=== PATIENT | female | born 1995 | race Caucasian/White ===

== ENCOUNTER 2017-10-21 07:20 | Inpatient (IN) ==
[2017-10-21] MEDS ORDERED: CARBOPROST 250 MCG/ML INJECTION IM PRN (07:57)
[2017-10-21] MEDS ORDERED: ACETAMINOPHEN 500 MG TABLET PO PRN ×2 (07:57→09:30)
[2017-10-21] MEDS ORDERED: CALCIUM CARBONATE Chewable 500mg TABLET PO PRN ×2 (07:57→09:30)
[2017-10-21] MEDS ORDERED: MAG-AL + SIM ORAL LIQUID 30ml PO PRN ×2 (07:57→09:30)
[2017-10-21] MEDS ORDERED: LIDOCAINE 1% (10mg/ml) 2mL INJ PF SDV ID PRN (07:57)
[2017-10-21] MEDS ORDERED: METHYLERGONOVINE 0.2 MG/ML INJECTION IM PRN (07:57)
[2017-10-21] MEDS ORDERED: LR 1,000 ML IV PRN (07:57)
--- OUTSIDE RECORDS SUMMARY | 2017-10-21 07:57 | External Medical Summary | Continuity of Care Document ---
:1995 Author Organization [facility] Address [address] [place], [place] [id number] Phone Support Name Relationship Address Phone Griffin Phillips parent [address] [phone] [place] [address] Allergies, Adverse Reactions, Alerts Substance Reaction Severity Status Sulfa (Sulfonamide Antibiotics) Unknown Active Medications Medication Instructions Dosage Effective Dates Status Comments (start - stop) Diclegis 10 mg-10 mg take 1 tablet by Not Available - Active tablet,delayed oral route every release day in the morning, 1 tablet in the mid-afternoon, and 2 tablets at bedtime as needed for nausea 28 mg take 1 tablet by Not Available - Active iron-800 mcg tablet oral route every day Zovirax 5 % topical apply by topical Not Available - Active cream route 5 times every day to the affected area(s) Valacyclovir Hcl 500 TAKE ONE TABLET BY - Active Mg Tablet MOUTH EVERY DAY (increase TO TWICE DAILY FOR 5 DAYS INFECTION outbreak) Problems Condition Effective Dates (start - stop) Clinical Status Follow-Up, Routine - Threatened , Antepartum - Routine Care, Multigravida 12 weeks gestation of - Spotting complicating , first trimester Herpesviral vulvovaginitis Anxiety disorder, unspecified Puerperal psychosis Vaginal burning Threatened - 12 weeks gestation of - Other antepartum hemorrhage, first - trimester 12 weeks gestation of - Other viral diseases complicating - , first trimester Encntr screen for infections w sexl - mode of transmiss Encounter for screening for oth - infec/parastc diseases Encounter for suprvsn of normal - , first trimester Encounter for screening of - mother 11 weeks gestation of - Encounter for screening for oth - infec/parastc diseases Enc for surveillance of implantable subdermal contraceptive Encounter for surveillance of other - contraceptives Encounter for surveillance of other - contraceptives Encounter for surveillance of other contraceptives Encounter for test, result - negative Vaginal Lesion - Active Vaginal Discharge - Active Herpes Simplex Virus Active Anxiety Disorder Active Active Procedures Procedure Date OB Visit No Charge CBC, Automated Hemogram Venpnctr fngr/heel/ear stick routne Results Test Name Date and Time Measure Units Reference Range Abnormal Flag Comments Panel Description: CBC (INCLUDES DIFF/PLT) WHITE BLOOD CELL 7.9 Thousand/uL 3.8-10.8 N COUNT 11:19:00 RED BLOOD CELL 3.83 Million/uL 3.80-5.10 N COUNT 11:19:00 HEMOGLOBIN 12.5 g/dL 11.7-15.5 N 11:19:00 HEMATOCRIT 35.5 % 35.0-45.0 N 11:19:00 MCV 92.7 fL 80.0-100.0 N 11:19:00 MCH 32.6 pg 27.0-33.0 N 11:19:00 MCHC 35.2 g/dL 32.0-36.0 N 11:19:00 RDW 12.4 % 11.0-15.0 N 11:19:00 PLATELET COUNT 270 Thousand/uL 140-400 N 11:19:00 MPV 10.6 fL 7.5-12.5 N 11:19:00 ABSOLUTE 5538 cells/uL 9997-2208 N NEUTROPHILS 11:19:00 ABSOLUTE 1714 cells/uL 850-3900 N LYMPHOCYTES 11:19:00 ABSOLUTE MONOCYTES 608 cells/uL 200-950 N 11:19:00 ABSOLUTE 8 cells/uL 15-500 L EOSINOPHILS 11:19:00 ABSOLUTE BASOPHILS 32 cells/uL 0-200 N 11:19:00 NEUTROPHILS 70.1 % N 11:19:00 LYMPHOCYTES 21.7 % N 11:19:00 MONOCYTES 7.7 % N 11:19:00 EOSINOPHILS 0.1 % N 11:19:00 BASOPHILS 0.4 % N REPORT 11:19:00 COMMENT:FASTING:NO Test performed at [facility] [id number] [place] [address]Atezxmjb : ANDREA FOWLER DO,MPH Advance Directives Directive Yes / No Effective Date File Name Unknown Encounters Encounter Practice Location Reason(s) Diagnoses Date Provider Care Team Description For Visit Members Souleymane Hillman Other antepartum Sep-2 Shook Referring In Womens hemorrhage, first 0-201 Tanisha. Provider: Sissy THOMPSON, [id number] weeks 7 700 [facility] gestation of Medical Rk [place] [address], Center [facility] Dr Zofia, [facility], [address] [place] [id number], [place] [address], Rafy LOPEZ, tel:+ [phone] [place], , . [id number]. tel: tel: [phone] Souleymane Hillman Threatened Sep-2 Rk Referring In Womens Ultrasound [id number] weeks 0-201 Bryan. 700 Provider: Sissy THOMPSON, gestation of 7 Medical [facility] Center Rk [place] [address], , [place] [address] [place], [facility], [facility] [id number], [facility] 120, [id number] Rafy, tel: , . [place], tel: [phone]. [id number] tel:[phone] Souleymane Hillman Threatened Sep-1 Sobbing Referring In Womens , 8-201 [place]. Provider: Sissy THOMPSON, AntepartumRoutine 7 700 [facility] Care, Medical Rk R, 1522, [id number] Center 700 [place], [facility] of Suite Center [id number], 120, [place] 120, [place] Rafy Hillman, tel: [place], [address], [id number]. [place]. tel: tel: [phone] Souleymane Hillman Other viral Sep-1 Rk Referring In Womens diseases 4-201 Bryan. [facility] Provider: Sissy THOMPSON, complicating 7 Medical Javed [address] , first Center Rk R, 1522, trimesterEncntr , [address], screen for 120, [facility], infections w sexl Rafy, [place] [id number], mode of [place], [place] 120, [place] transmissEncounte [id number] Rafy, tel:2 r for screening , [place]. [place], for oth tel: [phone]. infec/parastc [id number] tel: diseasesEncounter [phone] for suprvsn of normal , first trimesterEncounte r for screening of [id number] weeks gestation of Souleymane Hillman Spotting Sep-1 Shook Referring In Womens complicating 2-201 Tanisha. Provider: Sissy THOMPSON, , first 7 700 Javed PO Box trimester Medical Rk R, 1522, Center [facility] [place], , [facility], 120, Center [id number], Rafy, [facility] 120, [place] Rafy LOPEZ, tel:[phone] [place], , [place]. [id number]. tel: tel: [phone] Souleymane Phipps for May-3 Shook Referring In Womens surveillance of 0-201 Tanisha. Provider: Sissy THOMPSON, implantable 7 700 Javed PO Box subdermal Medical Rk R, 1522, contraceptiveEnco Center [facility] [place] for Dr, [facility], surveillance of 120, Center [id number], other Hillman, [facility] 120, [place] contraceptives Rafy LOPEZ, tel: [phone] [place], , [place]. [id number]. tel: tel: [phone] Souleymane Hillman Mar-3 Rk In Womens 0-201 [place]. 700 Health DONNA, 7 Medical PO Box Center 1522, , [place] Armijo, 120, Rafy LOPEZ, [id number], [place], [place] [id number] tel: , [place]. tel: [phone] Souleymane Hillman Mar-1 Rk In Womens 6-201 [place]. 700 Health DONNA, 7 Medical PO Box Center 1522, , [place] Arm[place], 120, Rafy LOPEZ, [id number], [place], [place] [id number] tel: , [place]. tel: [phone] Souleymane Hillman Encounter for Aug- Shook Referring In Womens surveillance of - Tanisha. Provider: Sissy THOMPSON, other [address] [place] [address] Box contraceptivesEnc Medical Rk R, 1522, ounter for Center Kay Armijo, surveillance of , [facility], [facility] 120, [place] [id number], contraceptivesEnc Rafy, [facility] 120, ounter for Rafy LOPEZ, tel: test, [place], result negative , [place]. [id number]. tel: tel: [phone] Souleymane Hillman Dec-2 Rk Referring In Womens Follow-Up, - Bryan. 700 Provider: Sissy THOMPSON, Routine 6 [facility] Rk [place], 1522, Dr [place] Kay Armijo, 120, Medical [facility] [id number], [place], [facility] 120, [place] [id number] Rafy, tel: , [place]. [place], tel: [phone]. [id number] tel:[phone] Souleymane Hillman Puerperal Dec-1 Rk Referring In Womens psychosis 4-201 Bryan. 700 Provider: Sissy THOMPSON, 6 [facility] Rk [place], 1522, [place], 120, Medical Rafy [facility] [id number], [place], [facility] 120, [place] [id number] Rafy, tel: , . [place] tel:[phone]. [phone] tel:[phone] Souleymane Hillman Oct-2 Rk Referring In Womens 7-201 Bryan. 700 Provider: Sissy THOMPSON, 6 [facility] Box [place] Rk [place], 1522, , [place] 700 [place], 120, Medical Rafy [facility] [id number], [place], [place] 120, [place] [id number] Rafy, tel:+ , [place]. [place], tel: [phone]. [id number] tel:[phone] Souleymane Hillman Sep-2 Rk Referring In Womens 2-201 [place]. 700 Provider: Sissy THOMPSON, 6 [facility] Box [place] Rk [place], 1522, , [place] 700 [place], 120, Medical Rafy [facility] [id number], [place], [place] 120, [place] [id number] Rafy, tel:+ , . [place], tel: [phone]. [phone] tel:[phone] Souleymane Hillman Vaginal burning Aug-2 Rk Referring In Womens 2201 [place]. 700 Provider: Sissy THOMPSON, 6 [facility] Rk [place], Moe2, , [place] 700 [place], 120, Medical Rafy [facility] [id number], [place], [facility] 120, [place] [id number] Rafy, tel: , [place]. [place], tel: [phone]. [phone] tel:[phone] Souleymane Hillman Encounter for Apr-1 Rk Referring In Womens screening for oth 3- Bryan. 700 Provider: Sissy THOMPSON, infec/parastc 6 [facility] diseases Center Cyrus Ayoub, , [place] 700 [place], 120, Medical Rafy [facility] [id number], [place], [place] 120, [place] [id number] Rafy, tel: , [place]. [place], tel: [phone]. [phone] tel:[phone] Souleymane Hillman Herpesviral Mar-0 Rk Referring In Womens vulvovaginitisAnx 3- Bryan. 700 Provider: Sissy THOMPSON, iety disorder, 6 [facility] Box unspecified Center Rk [place], 1522, , [place] 700 [place], 120, Medical Rafy [facility] [id number], [place], [facility] 120, [place] [id number] Rafy, tel:+ , [place]. [place], tel: [phone]. [id number] tel:[phone] Associates Rafy Jul- Rk Referring In Womens 2-201 Bryan. 700 Provider: Health DONNA, 4 [facility] [address], [address], 120, Medical Rafy [facility] [id number], [place], [facility] 120, [place] [id number] Rafy, tel:+ , [place]. [place], tel: [phone]. [id number] tel:[phone] Souleymane Hillman Sep-3 Rk Referring In Womens 0-201 Bryan. 700 Provider: Health DONNA, 4 [facility] [address], [place] [address] [place], 120, Medical Rafy [facility] [id number], [place], [facility] 120, [place] [id number] Rafy, tel: , [place]. [place], tel: [phone]. [phone] tel:[phone] Associates Rafy Philip-0 Macias In Womens 8-201 [place]. Health [place], [address] [place], [place] [address], [place] Dr Zofia, [facility], 120, [id number], Hillman, JOHN, tel: [phone] , [place]. tel: [phone] Family History Family Member Diagnosis Age At Onset Maternal Grandmother Diabetes mellitus Maternal Grandfather Diabetes mellitus Immunizations Vaccine Date Status Comments Tdap completed Source: New Immunization Record Influenza, injectable, completed Source: New Immunization Record quadrivalent, preservative free, 3 yrs or older HPV, quadrivalent completed Source: New Immunization Record HPV, quadrivalent completed Source: New Immunization Record Payers Payer name Insurance type Covered alliance party ID Authorization(s) [facility] [id number] [facility] [id number] [facility] [id number] [facility] [id number] [place] [id number] [facility] [id number] [employer] [id number] Social History Type Description Quantity Date Captured Alcohol Use Details No Caffeine Use Details Unknown Tobacco Use Status Smoking Status Former smoker Vital Signs Date / Height Weight BMI Pulse Blood Temperature Respiratory Body Head BMI Time: Rate Pressure Rate Surface Circumference percentile Area 114.80 18.6 119/73 -2017 lbs 4 mm[Hg] 10:33 kg/m AM eter (2) Chief Complaint And Reason For Visit Unknown Chief Complaint And Reason For Visit Reason For Referral Reason For Referral Unknown Plan Of Care Date Type Action Status Appointment Hannah Phillips BOOKED Future Order: Radiology Order Ultrasound < 14 wks ([id number]) Ordered Future Order: Lab Order Pap Smear With HPV Reflex If ASCUS Ordered ([id number]) Date Type Problem Goal Intervention Status Start Date Unknown. History Of Present Illness Encounter Date Complaint History Of Present Illness This patient has no known history of present illness Functional Status Encounter Date Functional Assessment Cognitive Assessment Unknown Medications Administered Medication Instructions Dosage Effective Dates (start - stop) Status Comments Drug Treatment Unknown Instructions Date Instruction Additional Information indications for ultrasound influenza vaccine environmental / work hazards travel use of any medications (including supplements, vitamins, herbs, OTC drugs) domestic violence seat belt use childbirth classes / hospital facilities hospital registration genetic testing HIV and other routine tests risk factors identified by history anticipated course of care nutrition and weight gain counseling, special diet toxoplasmosis precautions (cats / raw meat) sexual activity exercise toxoplasmosis precautions (cats / raw meat) sexual activity exercise indications for ultrasound influenza vaccine environmental / work hazards HIV and other routine tests risk factors identified by history anticipated course of care nutrition and weight gain counseling, special diet new ob handbook travel use of any medications (including supplements, vitamins, herbs, OTC drugs) domestic violence seat belt use childbirth classes / hospital facilities hospital registration genetic testing
--- OUTSIDE RECORDS SUMMARY | 2017-10-21 07:57 | External Medical Summary | Continuity of Care Document ---
:1995 Author Organization [facility] Address [address] [place], [place] [id number] Phone Support Name Relationship Address Phone Griffin Phillips parent [address] [phone] [place] [address] Allergies, Adverse Reactions, Alerts Substance Reaction Severity Status Sulfa (Sulfonamide Antibiotics) Unknown Active Medications Medication Instructions Dosage Effective Dates Status Comments (start - stop) 28 mg take 1 tablet by Not [...] - stop) Clinical Status Follow-Up, Routine - Encounter for suprvsn of normal - , second trimester 23 weeks gestation of - Spotting complicating , first trimester Threatened , Antepartum - Routine Care, Multigravida 12 weeks gestation of - Herpesviral vulvovaginitis Anxiety disorder, unspecified Puerperal psychosis Vaginal burning Threatened - 12 weeks gestation of - Other antepartum hemorrhage, first - trimester 12 weeks gestation of - Other antepartum hemorrhage, second - trimester 19 weeks gestation of - Other viral diseases [...] contraceptives Encounter for test, result - negative Encounter for suprvsn of normal - , second trimester 15 weeks gestation of - Encounter for suprvsn of normal - , second trimester 19 weeks gestation of - Vaginal Lesion - Active Vaginal Discharge - Active Herpes Simplex Virus Active Anxiety Disorder Active Active Procedures Procedure Date OB Visit No Charge Results Test Name Date and Time Measure Units Reference Range Abnormal Flag Comments Unknown Advance Directives Directive Yes / No Effective Date File Name Unknown Encounters Encounter Practice Location Reason(s) Diagnoses Date Provider Care Team Description For Visit Members Souleymane Hillman Encounter for Dec-0 Rk Referring In Womens suprvsn of normal 7-201 [place]. 700 Provider: Sissy THOMPSON, , second 7 [facility] Box [id number] weeks [place] Rk R, 1522, gestation of Geoffrey Rome, 120, Medical [facility] [id number], [place], [facility] 120, [place] [id number] Rafy, tel: , [facility], tel: [phone]. [id number] tel:[phone] Souleymane Hillman Encounter for Nov-0 Rk Referring In Womens suprvsn of normal 9-201 Javed. 700 Provider: Sissy THOMPSON, , second 7 Medical Javed PO Box [id number] weeks [place] Rk R, 1522, gestation of Geoffrey Romechita, 120, Medical [facility] [id number], [place], Geoffrey 120, [place] [id number] Rafy, tel: , [facility], tel: [phone]. [id number] tel:[phone] Souleymane Hillman Other antepartum Nov-0 Rk Referring In Womens Ultrasound hemorrhage, 9-201 [place]. 700 Provider: Sissy THOMPSON, second 7 [facility] Box [id number] weeks [place] Rk [place], 1522, gestation of Geoffrey Rome, 120, Medical Rafy LOPEZ, [place] [id number], [place], [facility] 120, [place] [id number] Rafy, tel: , [place]. [place], tel: [phone]. [id number] tel:[phone] Souleymane Hillman Encounter for Oct-1 Rk Referring In Womens suprvsn of normal 2-201 [place]. 700 Provider: Sissy THOMPSON, , second 7 [facility] Box [id number] weeks Center Rk [place], 1522, gestation of Geoffrey Rome, 120, Medical [facility] [id number], [place], [facility] 120, [place] [id number] Rafy, tel: , [place]. [place], tel: [phone]. [id number] tel:[phone] Souleymane Hillman Other antepartum Sep-2 Shook Referring In Womens hemorrhage, first 0-201 Tanisha. Provider: Sissy THOMPSON, [id number] weeks [address] [place] [address] [facility] Rk [place], 1522, Center [address], [facility], 120, [place] [id number], [place], [facility] 120, [place] Rafy LOPEZ, tel:[phone] [place], , [place]. [id number]. tel: tel: [phone] Souleymane Hillman Threatened Sep-2 Rk Referring In Womens Ultrasound [id number] weeks 0-201 [place]. 700 Provider: Sissy THOMPSON, gestation of 7 [facility] Center Rk [place], 1522, Geoffrey Rome, 120, Medical [facility] [id number], [place], Geoffrey 120, [place] [id number] Rafy, tel: , . [place] tel: [phone]. [id number] tel:[phone] Souleymane Hillman Threatened Sep-1 Sobbing Referring In Womens , 8-201 [place]. Provider: Sissy THOMPSON, AntepartumRoutine 7 700 Javed PO Box Care, Medical Rk R, 1522, [id number] Center [address] [place], weeks gestation Drive, [facility], of Suite Center [id number], 120, Geoffrey 120, [place] Rafy Hillman, tel: [place], [address], [id number]. [place]. tel: tel: [phone] Souleymane Hillman Other viral Sep-1 Rk Referring In Womens diseases 4-201 [place]. 700 Provider: Sissy THOMPSON, complicating 7 Medical Javed PO Box , first Center Rk R, 1522, trimesterEncntr , [place] [address] Zofia, screen for 120, [facility], infections w sexl Rafy, [place] [id number], mode of [place], Geoffrey 120, [place] transmissEncounte [id number] Rafy, tel: r for screening , [place]. [place] for oth tel:[phone]. infec/parastc [id number] tel: diseasesEncounter [phone] for suprvsn of normal , first trimesterEncounte r for screening of weeks gestation of Souleymane Hillman Spotting Sep-1 Shook Referring In Womens complicating 2-201 Tanisha. Provider: Sissy THOMPSON, , first 7 700 Javed PO Box trimester Medical Rk R, 1522, Center [facility] [address] Zofia, [facility], 120, Center [id number], [place], [facility] 120, [place] Rafy LOPEZ, tel:[phone] [place], , [place]. [id number]. tel: tel: [phone] Souleymane Hillman Enc for May-3 Shook Referring In Womens surveillance of 0-201 Tanisha. Provider: Sissy THOMPSON, implantable 7 700 Javed PO Box subdermal Medical Rk R, 1522, contraceptiveEnco Center [facility] Zofia, unter for , [facility], surveillance of 120, Center [id number], other Rafy, [facility] 120, [place] contraceptives Rafy LOPEZ, tel:[phone] [place], , [place]. [id number]. tel: tel: [phone] Souleymane Hillman Mar-3 Rk In Womens 0-201 [place]. 700 Health DONNA, 7 Medical PO Box Center 1522, , Geoffrey Armijo, 120, [place], Rafy, [id number], [place], [place] [id number] tel: , [place]. tel: [phone] Souleymane Hillman Mar-1 Rk In Womens 6-201 [place]. 700 Health DONNA, 7 Medical PO Box Center 1522, , Geoffrey Armijo, 120, [place], Rafy, [id number], [place], [place] [id number] tel: , [place]. tel: [phone] Souleymane Hillman Encounter for Herman- Shook Referring In Womens surveillance of 7- [place]. Provider: Health DONNA, other [address] [place] [address] [facility] Rk [place] 1522, ounter for [place] Kay Armijo, surveillance of , [facility], [facility] 120, [place] [id number], contraceptivesEnc Rafy, [facility] 120, [place] ounter for Rafy LOPEZ, tel: test, [place], result negative , [place]. [id number]. tel: tel: [phone] Souleymane Hillman Dec-2 Rk Referring In Womens Follow-Up, [place]. 700 Provider: Sissy THOMPSON, Routine 6 [facility] Rk [place] 1522, Geoffrey Rome, 120, Medical [facility] [id number], [place], [facility] 120, [place] [id number] Rafy, tel: , . [place] tel: [phone]. [id number] tel:[phone] Souleymane Hillman Puerperal Dec-1 Rk Referring In Womens psychosis 4-201 [place]. 700 Provider: Sissy THOMPSON, 6 [facility] Rk [place] 1522, Geoffrey Rome, 120, Medical Rafy LOPEZ, [place] [id number], [place], [facility] 120, [place] [id number] Rafy, tel:+ , [place]. [place], tel: [phone]. [id number] tel:[phone] Souleymane Hillman Oct-2 Rk Referring In Womens 7-201 [place]. 700 Provider: Sissy THOMPSON, 6 [facility] Cyrus Ayoub, , [place] [address] Z[place], 120, Medical [facility] [id number], [place], [place] 120, [place] [id number] Rafy, tel:+[phone] , [place]. [place], tel: [phone]. [id number] tel:[phone] Souleymane Hillman Sep-2 Rk Referring In Womens 2-201 [place]. 700 Provider: Sissy THOMPSON, 6 [facility] Cyrus Ayoub, , [place] [address] [place], 120, Medical [facility] [id number], [place], [facility] 120, [place] [id number] Rafy, tel:+ , [place]. [place], tel: [phone]. [id number] tel:[phone] Souleymane Hillman Vaginal burning Aug-2 Rk Referring In Womens 2201 [place]. 700 Provider: Sissy THOMPSON, 6 [facility] Cyrus Ayoub, , [place] [address] [place], 120, Medical [facility] [id number], [place], [place] 120, [place] [id number] Rafy, tel: , [place]. [place], tel: [phone]. [id number] tel:[phone] Souleymane Hillman Encounter for Apr-1 Rk Referring In Womens screening for oth - [place]. 700 Provider: Sissy THOMPSON, infec/parastc 6 [facility] diseases [place] [address], [place] [address] [place], 120, Medical [facility] [id number], [place], [place] 120, [place] [id number] Rafy, tel:+ , [place]. [place], tel: [phone]. [id number] tel:[phone] Souleymane Hillman Herpesviral Mar-0 Rk Referring In Womens vulvovaginitisAnx 3- [place]. 700 Provider: Health DONNA, ienicole disorder, 6 [facility] Box unspecified Center Cyrus Ayoub, , [address], 120, Medical [facility] [id number], [place], [facility] 120, [place] [id number] Rafy, tel:+ , [place]. [place], tel: [phone]. [id number] tel:[phone] Associates Rafy Dec-1 Rk Referring In Womens 2-201 [place]. 700 Provider: Health DONNA, 4 [facility] [address], [address], 120, Medical [facility] [id number], [place], [facility] 120, [place] [id number] Rafy, tel:+ , . [place], tel: [phone]. [id number] tel:[phone] Associates Rafy Sep-3 Rk Referring In Womens 0-201 [place]. 700 Provider: Sissy THOMPSON, 4 [facility] Cyrus Ayoub, , [address], 120, Medical [facility] [id number], [place], [facility] 120, [place] [id number] Rafy, tel: , [place]. [place], tel: [phone]. [id number] tel:[phone] Associates Rafy Philip-0 Macias In Womens 8-201 [facility]. Health DONNA, [address] [place] [address] [address]22, [address], [facility], 120, [id number], Rafy, JOHN, tel:+ [phone] , [place]. tel:[phone] Family History Family Member Diagnosis Age At Onset Maternal Grandmother Diabetes mellitus Maternal Grandfather Diabetes mellitus Immunizations Vaccine Date Status Comments Influenza, injectable, completed Source: New Immunization Record quadrivalent, preservative free, 3 yrs or older Tdap completed Source: New Immunization Record Influenza, injectable, completed Source: New Immunization Record quadrivalent, preservative free, 3 yrs or older HPV, quadrivalent completed Source: New Immunization Record HPV, quadrivalent completed Source: New Immunization Record Payers Payer name Insurance type Covered libertarian ID Authorization(s) [facility] [id number] [employer] [place] Medicaid MC [id number] [facility] [id number] [employer] [place] [id number] [facility] [id number] [facility] [id number] [facility] [id number] [employer] [place] MC [id number] [facility] [id number] [employer] [place] Medicaid MC [id number] Social History Type Description Quantity Date Captured Alcohol Use Details No Caffeine Use Details Unknown Tobacco Use Status Smoking Status Former smoker Vital Signs Date / Height Weight BMI Pulse Blood Temperature Respiratory Body Head BMI Time: Rate Pressure Rate Surface Circumference percentile Area 125.90 20.4 115/ lbs 4 mm[Hg] 10:05 kg/m AM eter (2) Chief Complaint And Reason For Visit Unknown Chief Complaint And Reason For Visit Reason For Referral Reason For Referral Unknown Plan Of Care Date Type Action Status Appointment Hannah Phillips BOOKED Future Order: Radiology Order Ultrasound < 14 wks ([id number]) Ordered Future Order: Radiology Order Complete OB Ultrasound > 14 Ordered Weeks ([id number]) Future Order: Lab Order Pap Smear With [...]
--- OUTSIDE RECORDS SUMMARY | 2017-10-21 07:57 | External Medical Summary | Continuity of Care Document ---
:1995 Author Organization [facility] Address [address] [place], [place] [id number] Phone Support Name Relationship Address Phone Griffin Phillips parent [address] [phone] [place] [address] Allergies, Adverse Reactions, Alerts Substance Reaction Severity [...] - stop) Clinical Status Follow-Up, Routine - Other viral diseases complicating - , first trimester Encntr screen for infections w sexl - mode of transmiss Encounter for screening for oth - infec/parastc diseases Encounter for suprvsn of normal - , first trimester Encounter for screening of - mother 11 weeks gestation of - Spotting complicating , first trimester Threatened , Antepartum - Routine Care, Multigravida 12 weeks gestation of - Herpesviral vulvovaginitis Anxiety disorder, unspecified Puerperal psychosis Vaginal burning Threatened - 12 weeks gestation of - Other antepartum hemorrhage, first - trimester 12 weeks gestation of - Encounter for screening [...] Anxiety Disorder Active Active Procedures Procedure Date Initial OB Visit No Charge - 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1 % 11.0-15.0 N 10:21:00 PLATELET COUNT 273 Thousand/uL 140-400 N 10:21:00 MPV 10.5 fL 7.5-12.5 N 10:21:00 ABSOLUTE 6973 cells/uL 5641-0552 N NEUTROPHILS 10:21:00 ABSOLUTE 1720 cells/uL 850-3900 N LYMPHOCYTES 10:21:00 ABSOLUTE 751 cells/uL 200-950 N MONOCYTES 10:21:00 ABSOLUTE 19 cells/uL 15-500 N EOSINOPHILS 10:21:00 ABSOLUTE 38 cells/uL 0-200 N BASOPHILS 10:21:00 NEUTROPHILS 73.4 % N 10:21:00 LYMPHOCYTES 18.1 % N 10:21:00 MONOCYTES 7.9 % N 10:21:00 EOSINOPHILS 0.2 % N 10:21:00 BASOPHILS 0.4 % N 10:21:00 ANTIBODY SCREEN, NO ANTIBODIES N RBC W/REFL ID, 10:21:00 DETECTED Reference range TITER AND AG No antibodies detected This assay is a screening test for the detection of red blood cell antibodies. The test is not to be used for pretransfusion screening or for the medical management of an alloimmunized . ABO GROUP O 10:21:00 RH TYPE RH(D) 10:21:00 POSITIVE RPR (DX) W/REFL NON-REACTIVE NON-REACTIV N TITER AND 10:21:00 E CONFIRMATORY TESTING HEPATITIS B NON-REACTIVE NON-REACTIV N SURFACE ANTIGEN 10:21:00 E RUBELLA ANTIBODY 3.19 index N Index (IGG) 10:21:00 Interpretation ----- <0.90 Not consistent with Immunity 0.90-0.99 Equivocal > or=1.00 Consistent with Immunity The presence of rubella IgG antibody suggests immunization or past or current infection withrubella virus.Test performed at [facility] [id number] [place] [address]Bgbadhl r: ANDREA FOWLER DO,MPH Panel Description: HIV 1/2 ANTIGEN/ANTIBODY,FOURTH GENERATION W/RFL HIV NON-REACTIVE NON-REACTIVE N HIV-1 antigen and HIV-1/HIV- 2 antibodies were AG/AB, 10:21:00 notdetected. There is no laboratory evidence of 4TH GEN HIVinfection. PLEASE NOTE: This information has been disclosed toyou from records whose confidentiality may beprotected by state law. If your state requires suchprotection, then the state law prohibits you frommaking any further disclosure of the informationwithout the specific written consent of the personto whom it pertains, or as otherwise permitted by law.A general authorization for the release of medical orother information is NOT sufficient for this purpose. For additional information please refer [email or web address].[address]/faq/PHJ250(This link is being provided for informational/educational purposes only.) The performance of this assay has not been clinicallyvalidated in patients less than 2 years old. REPORT COMMENT:FASTING:NOTest performed at [facility] [id number] [place] [address]Womudhwz: ANDREA FOWLER DO,MPH Panel Description: Bacteria identified in Urine by Culture CULTURE, URINE, SEE NOTE CULTURE, URINE, ROUTINE MICRO ROUTINE 10:23:00 NUMBER: [id number] TEST STATUS: FINAL SPECIMEN SOURCE: URINE, CLEAN CATCH SPECIMEN QUALITY: ADEQUATE RESULT: Single organism less than 10,000 CFU/mL isolated. These organisms, commonly found on external and internal genitalia, are considered colonizers. No further testing performed.REPORT COMMENT:RFASTING:UNKNOWNTest performed at [facility] [id number] [place] [phone]: ANDREA FOWLER DO,MPH Panel Description: CHLAMYDIA/N. GONORRHOEAE RNA, TMA CHLAMYDIA NOT DETECTED NOT DETECTED N TRACHOMATIS RNA, 10:24:00 TMA NEISSERIA NOT DETECTED NOT DETECTED N GONORRHOEAE RNA, 10:24:00 TMA [id number] SEE NOTE This test was 10:24:00 performed using the APTIMA COMBO2 Assay([employer] The analytical performance characteristics of this assay, when used to test SurePath specimens havebeen determined by [employer]. REPORT COMMENT:FASTING:UNKNO WNTest performed at [facility] [id number] [place] [address]Ybgjlgtm: ANDREA FOWLER DO,MPH Panel Description: Pap Smear With HPV Reflex If ASCUS Document Pap Smear 09:45:00 See scanned report. Advance Directives Directive Yes / No Effective Date File Name Unknown Encounters Encounter Practice Location Reason(s) Diagnoses Date Provider Care Team Description For Visit Members Souleymane Hillman Other antepartum Sep-2 Shook Referring In Womens hemorrhage, first 0-201 Tanish[place]. Provider: Sissy THOMPSON, weeks [address] [place] [address] gestation of Medical Rk [place], [address], Center [address] Zofia, [facility], 120, Center [id number], [place], [facility] 120, [place] Rafy LOPEZ, tel:[phone] [place], , [place]. [id number]. tel: tel: [phone] Souleymane Hillman Threatened Sep-2 Rk Referring In Womens Ultrasound [id number] weeks 0-201 [place]. 700 Provider: Sissy THOMPSON, gestation of 7 Medical [facility] Box Center Rk [place], 1522, , [place] [address] [place], 120, Medical [facility] [id number], [place], [place] 120, [place] [id number] Rafy, tel: , [place]. [place], tel: [phone]. [id number] tel:[phone] Souleymane Hillman Threatened Sep-1 Sobbing Referring In Womens , 8-201 [place]. Provider: Sissy THOMPSON, AntepartumRoutine [address] [place] [address] Care, Medical Rk [place], 1522, [id number] Center 700 [place], weeks gestation [facility], of Suite Center [id number], 120, [place] 120, [place] Rafy [place], [place]: [place], [address], [id number]. [place]. tel: tel: [phone] Souleymane Hillman Other viral Sep-1 Rk Referring In Womens diseases 4-201 [place]. 700 Provider: Sissy THOMPSON, complicating 7 Medical [facility] Box , first Center Rk [place], 1522, trimesterEncntr , [place] [address] [place], screen for 120, Medical [place], infections w sexl Rafy, [place] [id number], mode of [place], [facility] 120, [place] transmissEncounte [id number] Rafy, tel: r for screening , [place]. [place] for oth tel:[phone]. infec/parastc [id number] tel: diseasesEncounter [phone] for suprvsn of normal , first trimesterEncounte r for screening of oteheq43 weeks gestation of Souleymane Hillman Spotting Sep- Shook Referring In Womens complicating 2-201 [place]. Provider: Health [place], , first 7 700 [address] Box trimester Medical Rk R, 1522, Center [facility] Dr Zofia, [facility], 120, [place] [id number], [place], [facility] 120, [place] Rafy LOPEZ, tel: [phone] [place], , [place]. [id number]. tel: tel: [phone] Souleymane Hillman Enc for November- Shook Referring In Womens surveillance of 0-201 [place]. Provider: Health [place], implantable 7 700 [place] PO Box subdermal Medical Rk R, 1522, contraceptiveEnco Center [facility] oj Armijo for , [facility], surveillance of 120, [place] , other [place], [facility] 120, [place] contraceptives Rafy LOPEZ, tel:[phone] [place], , [place]. [id number]. tel: tel: [phone] Souleymane Hillman Mar-3 Rk In Womens 0-201 [place]. 700 [facility], Medical PO Box Center 1522, , [place] Arm[place], 120, Rafy LOPEZ, [id number], [place], [place] [id number] tel: , [place]. tel: [phone] Souleymane Hillman Mar-1 Rk In Womens 6-201 [place]. 700 [facility], 7 Medical [address] Box Center 1522, , [place] Armijo, 120, Rafy LOPEZ, [id number], [place], [place] [id number] tel: , [place]. tel: [phone] Souleymane Hillman Encounter for Shook Referring In Womens surveillance of Tanisha. Provider: Sissy THOMPSON, other 7 700 [facility] contraceptivesEnc Medical Rk [place], 1522, ounter for [place] 700 [place], surveillance of , [facility], other 120, Center [id number], contraceptivesEnc [place], [place] 120, [place] ounter for Rafy LOPEZ, tel: test, [place], result negative , [place]. [id number]. tel: tel: [phone] Souleymane Hillman Dec-2 Rk Referring In Womens Follow-Up, [place]. 700 Provider: Sissy THOMPSON, Routine 6 [facility] Rk [place], 1522, , [place] [address] [place], 120, Medical [facility] [id number], [place], [facility] 120, [place] [id number] Rafy, tel: , [place]. [place], tel: [phone]. [id number] tel:[phone] Souleymane Hillman Puerperal Dec-1 Rk Referring In Womens psychosis - [place]. 700 Provider: Sissy THOMPSON, 6 [facility] Rk [place], 1522, , [place] [address] [place], 120, Medical [facility] [id number], [place], [facility] 120, [place] [id number] Rafy, tel: , . [place], tel: [phone]. [id number] tel:[phone] Souleymane Hillman Oct-2 Rk Referring In Womens [place]. 700 Provider: Sissy THOMPSON, 6 [facility] Rk [place], 1522, , [place] [address] [place], 120, Medical [facility] [id number], [place], [place] 120, [place] [id number] Rafy, tel: , . [place], tel: [phone]. [id number] tel:[phone] Souleymane Hillman Sep-2 Rk Referring In Womens 2- [place]. 700 Provider: Sissy THOMPSON, 6 [facility] Rk [place], 1522, , [place] 700 [place], 120, Medical [facility] [id number], [place], [place] 120, [place] [id number] Rafy, tel: , [place]. [place], tel: [phone]. [id number] tel:[phone] Associates Rafy Vaginal burning Aug-2 Rk Referring In Womens 2-201 [place]. 700 Provider: Sissy THOMPSON, 6 [facility] Box [place] Rk [place], [address]Janis, , [place] 700 [place], 120, Medical [facility] [id number], [place], [place] 120, [place] [id number] Rafy, tel: , [place]. [place], tel: [phone]. [id number] tel:[phone] Souleymane Hillman Encounter for Apr- Rk Referring In Womens screening for oth 3- [place]. 700 Provider: Sissy THOMPSON, infec/parastc 6 [facility] Box diseases Center Rk [place], [address]Dr, [place] 700 [place], 120, Medical [facility] [id number], [place], [facility] 120, [place] [id number] Rafy, tel: , [place]. [place] tel: [phone]. [id number] tel:[phone] Souleymane Hillman Herpesviral Mar-0 Rk Referring In Womens vulvovaginitisAnx 3-201 [place]. 700 Provider: Sissy THOMPSON, esperanza marin, 6 [facility] Box unspecified Center Rk [place], [address]Dr, [place] 700 [place], 120, Medical [facility] [id number], [place], [facility] 120, [place] [id number] Rafy, tel: , [place]. [place] tel: [phone]. [id number] tel:[phone] Souleymane Hillman Dec-1 Rk Referring In Womens 2-201 [place]. 700 Provider: Sissy THOMPSON, 4 [facility] Box [place] Rk [place], [address]Janis, , [place] 700 [place], 120, Medical [facility] [id number], [place], [place] 120, [place] [id number] Rafy, tel: , [place]. [place], tel: [phone]. [id number] tel:[phone] Associates Rafy Sep-3 Rk Referring In Womens 0-201 [place]. 700 Provider: Health [place], 4 Medical [place] PO Box Center Rk R, 1522, , [place] 700 [place], 120, Medical [place], [facility] Dr [id number], [place], [facility] 120, [place] [id number] [place], tel: , [place]. [place], tel: [phone]. [id number] tel:[phone] Souleymane [place]man Philip-0 Macias In Womens 8-201 [place]. Health [place], 0 700 PO Box [facility] 15[address], [place] Dr Zofia, [facility] [place], 120, [id number], [place], [facility], tel: [phone] , [place]. tel: [phone] Family History Family Member Diagnosis Age At Onset Maternal Grandmother Diabetes mellitus Maternal Grandfather Diabetes mellitus Immunizations Vaccine Date Status Comments Tdap completed Source: New Immunization Record Influenza, injectable, completed Source: New Immunization Record quadrivalent, preservative free, 3 yrs or older HPV, quadrivalent completed Source: New Immunization Record HPV, quadrivalent completed Source: New Immunization Record Payers Payer name Insurance type Covered constitution party ID Authorization(s) [facility] [id number] [facility] [id number] [facility] [place] [id number] [facility] [id number] [employer] [place] - Medicaid MC [id number] [facility] [id number] [employer] [facility] [place] - Medicaid [place] [id number] Social History Type Description Quantity Date Captured Alcohol Use Details No Caffeine Use Details Unknown Tobacco Use Status Smoking Status Former smoker Non-Smoking Tobacco Use : No Details Available : No Details Available Details Vital Signs Date / Height Weight BMI Pulse Blood Temperature Respiratory Body Head BMI Time: Rate Pressure Rate Surface Circumference percentile Area 115.80 18.8 lbs 3 mm[Hg] 9:49 kg/m AM eter (2) Chief Complaint And Reason For Visit Unknown Chief Complaint And Reason For Visit Reason For Referral Reason For Referral Unknown Plan Of Care Date Type Action Status Appointment Hannah Phillips BOOKED Future Order: Radiology Order Ultrasound < 14 wks ([id number]) Ordered Future Order: Lab Order Pap Smear [...]
--- OUTSIDE RECORDS SUMMARY | 2017-10-21 07:58 | External Medical Summary | Continuity of Care Document ---
:1994 Author Organization [facility] Address [address] [place], [place] [address] Phone Support Name Relationship Address Phone Griffin Phillips parent [address] [phone] [place] [address] Allergies, Adverse Reactions, Alerts Substance Reaction Severity [...] stop) Clinical Status Follow-Up, Routine - Threatened - 12 weeks gestation of - Spotting complicating , first trimester Threatened , Antepartum - Routine Care, Multigravida 12 weeks gestation of - Herpesviral vulvovaginitis Anxiety disorder, unspecified Puerperal psychosis Vaginal burning Other antepartum hemorrhage, first - trimester 12 weeks gestation of - Other viral diseases complicating - , first trimester Encntr screen for infections w sexl - mode of transmiss Encounter for screening for oth - infec/parastc diseases Encounter for suprvsn of normal - , first trimester 11 weeks gestation of - Encounter for screening of - mother Encounter for screening for oth - infec/parastc diseases Enc for surveillance of implantable subdermal contraceptive Encounter for surveillance of other - contraceptives Encounter for surveillance of other - contraceptives Encounter for surveillance of other contraceptives Encounter for test, result - negative Vaginal Lesion - Active Vaginal Discharge - Active Herpes Simplex Virus Active Anxiety Disorder Active Active Procedures Procedure Date OB US < 14 WKS, SINGLE FETUS Results Test Name Date and Time Measure Units Reference Range Abnormal Flag Comments Unknown Advance Directives Directive Yes / No Effective Date File Name Unknown Encounters Encounter Practice Location Reason(s) Diagnoses Date Provider Care Team Description For Visit Members Souleymane Hillman Other antepartum Sep-2 Shook Referring In Womens hemorrhage, first 0-201 [place]. Provider: Sissy THOMPSON, [id number] weeks 7 700 [facility] Box gestation of Medical Rk [place], 1522, Center [address] Dr Zofia, [facility], 120, [place] [id number], [facility] 120, Rafy LOPEZ, tel:[phone] [place], , . [id number]. tel: tel:[phone] Souleymane Hillman Threatened Sep-2 Rk Referring In Womens Ultrasound [id number] weeks 0-201 [place]. 700 Provider: Sissy THOMPSON, gestation of 7 Medical [facility] Box Center Rk [place], 1522, , [place] [address] [place], 120, [facility] Rafy LOPEZ, [place] [id number], [facility] 120, [id number] Rafy, tel:[phone] , . [place], tel: [phone]. [id number] tel:[phone] Souleymane Hillman Threatened Sep-1 Sobbing Referring In Womens , 8-201 [place]. Provider: Sissy THOMPSON, AntepartumRoutine 7 700 [facility] Box Care, Medical Rk R, 1522, [id number] Center 700 [place], [facility], of Suite Center [id number], 120, [place] 120, [place] Rafy [place], tel: [place], [phone], [id number]. [place]. tel: tel: [phone] Souleymane Hillman Other viral Sep-1 Rk Referring In Womens diseases 4-201 [place]. [facility] Provider: Sissy THOMPSON, complicating 7 Medical [place] PO Box , first Center Rk R, 1522, trimesterEncntr , [address], screen for 120, [facility], infections w sexl Rafy, [place] [id number], mode of [place], [place] 120, [place] transmissEncounte [id number] Rafy, tel:2 r for screening , [place]. [place], for oth tel: [phone]. infec/parastc [id number] tel: diseasesEncounter [phone] for suprvsn of normal , first [id number] weeks gestation of pregnancyEncounte r for screening of mother Souleymane Hillman Spotting Sep-1 Shook Referring In Womens complicating 2-201 [place]. Provider: Sissy THOMPSON, , first 7 700 [place] PO Box trimester Medical Rk R, 1522, Center [facility] [place], Dr [facility], 120, Center [id number], Rafy, [facility] 120, [place] Rafy LOPEZ, tel:[phone] [place], , [place]. [id number]. tel: tel: [phone] Souleymane Phipps for May-3 Shook Referring In Womens surveillance of 0-201 [place]. Provider: Sissy THOMPSON, implantable 7 700 [place] PO Box subdermal Medical Rk R, 1522, contraceptiveEnco Center [facility] [place] for Dr, [facility], surveillance of 120, Center [id number], other Rafy, [facility] 120, [place] contraceptives Rafy LOPEZ, tel: [phone] [place], , [place]. [id number]. tel: tel: [phone] Souleymane Hillman Mar-3 Rk In Womens 0-201 [place]. 700 Health DONNA, 7 Medical PO Box Center 1522, , Geoffrey Armijo, 120, Rafy LOPEZ, [id number], [place], [place] [id number] tel: , [place]. tel: [phone] Souleymane Hillman Mar-1 Rk In Womens 6-201 [place]. 700 Health DONNA, 7 [facility] PO Box Center 1522, , [place] Armijo, 120, Rafy LOPEZ, [id number], [place], [place] [id number] tel: , [place]. tel: [phone] Souleymane Hillman Encounter for Aug- Shook Referring In Womens surveillance of - Tanisha. Provider: Sissy THOMPSON, other [address] [place] [address] contraceptivesEnc [facility] Rk R, 1522, ounter for Center [facility] [place], surveillance of , [facility], [facility] 120, [place] [id number], contraceptivesEnc Rafy, [facility] 120, ounter for Rafy LOPEZ, tel: test, [place], result negative , [place]. [id number]. tel: tel: [phone] Souleymane Hillman Dec-2 Rk Referring In Womens Follow-Up, - [place]. 700 Provider: Sissy THOMPSON, Routine 6 [facility] Rk [place], 1522, [place], 120, Medical [facility] [id number], [place], [facility] 120, [place] [id number] Rafy, tel: , [place]. [place], tel:[phone]. [id number] tel:[phone] Souleymane Hillman Puerperal Dec-1 Rk Referring In Womens psychosis 4-201 [place]. 700 Provider: Sissy THOMPSON, 6 [facility] Rk [place], 1522, [place], 120, Medical Rafy [facility] [id number], [place], [facility] 120, [place] [id number] Rafy, tel: , . [place] tel:[phone]. [id number] tel:[phone] Souleymane Hillman Oct-2 Rk Referring In Womens 7-201 [place]. 700 Provider: Sissy THOMPSON, 6 [facility] Box Center Rk [place], 1522, , Geoffrey 700 [place], 120, Medical [facility] [id number], [place], [place] 120, [place] [id number] Rafy, tel:+ , [place]. [place], tel: [phone]. [id number] tel:[phone] Souleymane Hillman Sep-2 Rk Referring In Womens 2-201 [place]. 700 Provider: Sissy THOMPSON, 6 [facility] Box [place] Rk [place], 1522, , Geoffrey 700 [place], 120, Medical [facility] [id number], [place], [facility] 120, [place] [id number] Rafy, tel: , . [place], tel: [phone]. [id number] tel:[phone] Souleymane Hillman Vaginal burning Aug-2 Rk Referring In Womens 2201 [place]. 700 Provider: Sissy THOMPSON, 6 [facility] Box [place] Rk [place], 1522, , Geoffrey 700 [place], 120, Medical [facility] [id number], [place], [facility] 120, [place] [id number] Rafy, tel: , [place]. [place], tel: [phone]. [id number] tel:[phone] Souleymane Hillman Encounter for Apr-1 Rk Referring In Womens screening for oth 3- [place]. 700 Provider: Sissy THOMPSON, infec/parastc 6 [facility] Box diseases Center Cyrus Ayoub, , Geoffrey 700 [place], 120, Medical [facility]y [facility] [id number], [place], [facility] 120, [place] [id number] Rafy, tel: , [place]. [place], tel: [phone]. [id number] tel:[phone] Souleymane Hillman Herpesviral Mar-0 Rk Referring In Womens vulvovaginitisAnx 3- [place]. 700 Provider: Sissy THOMPSON, iety disorder, 6 [facility] Box unspecified Center Rk [place], 1522, , Geoffrey 700 [place], 120, Medical [facility] [id number], [place], [place] 120, [place] [id number] Rafy, tel:+ , [place]. [place], tel: [phone]. [id number] tel:[phone] Associates Rafy Jul- Rk Referring In Womens 2-201 [place]. 700 Provider: Health DONNA, 4 [facility] [address], [address], 120, Medical JOHN, [facility] [id number], [place], [place] 120, [place] [id number] Rafy, tel:+ , [place]. [place], tel: [phone]. [id number] tel:[phone] Associates Rafy Sep-3 Rk Referring In Womens 0-201 [place]. 700 Provider: Health DONNA, 4 [facility] [address], [place] [address] [place], 120, Medical Rafy [facility] [id number], [place], [facility] 120, [place] [id number] Rafy, tel: , [place]. [place], tel: [phone]. [id number] tel:[phone] Associates Rafy Philip-0 Macias In Womens 8-201 [place]. Health [place], [address] [place], [place] [address], [place] Dr Zofia, [facility], 120, [id number], Hillman, JOHN, tel: [phone] , [place]. tel: [phone] Family History Family Member Diagnosis Age At Onset Maternal Grandmother Diabetes mellitus Maternal Grandfather Diabetes mellitus Immunizations Vaccine Date Status Comments Tdap completed Source: New Immunization Record Influenza, injectable, completed Source: New Immunization Record quadrivalent, preservative free, 3 yrs or older HPV, quadrivalent completed Source: New Immunization Record HPV, quadrivalent completed Source: New Immunization Record Payers Payer name Insurance type Covered democrat ID Authorization(s) [facility] [id number] [facility] [id number] [facility] [id number] [facility] [id number] [place] Medicaid MC [id number] [facility] [id number] [place] - Medicaid MC [id number] Social History Type Description Quantity Date Captured Unknown Vital Signs Date / Height Weight BMI Pulse Blood Temperature Respiratory Body Head BMI Time: Rate Pressure Rate Surface Circumference percentile Area Unknown Chief Complaint And Reason For Visit Unknown Chief Complaint And Reason For Visit Reason For Referral Reason For Referral Unknown Plan Of Care Date Type Action Status Appointment Hannah Phillips BOOKED Future Order: Radiology Order Ultrasound < 14 wks ([id number]) Ordered Future Order: Lab Order Pap Smear [...]
--- OUTSIDE RECORDS SUMMARY | 2017-10-21 07:58 | External Medical Summary | Continuity of Care Document ---
:1994 Author Organization [facility] Address [address] [place], [place] [address] Phone Support Name Relationship Address Phone Griffin Phillips parent [address] [phone] [place] [address] Allergies, Adverse Reactions, Alerts Substance Reaction Severity [...] - stop) Clinical Status Follow-Up, Routine - Spotting complicating , first trimester Threatened [...] second trimester 15 weeks gestation of - Vaginal Lesion - Active Vaginal Discharge - Active Herpes Simplex Virus Active Anxiety Disorder Active Active Procedures Procedure Date Unknown Results Test Name Date and Time Measure Units Reference Range Abnormal Flag Comments Unknown Advance Directives Directive Yes / No Effective Date File Name Unknown Encounters Encounter Practice Location Reason(s) Diagnoses Date Provider Care Team Description For Visit Members Souleymane Hillman Encounter for May-1 Rk Referring In Womens suprvsn of normal 2-201 [place]. 700 Provider: Health [place], , second 7 Medical [place] PO Box [id number] weeks [place] Rk [place], 1522, gestation of Dr [place] [address] Zofia, 120, [facility] [id number], [place] [address], [id number] Rafy, tel:+ , [place]. [place], tel: [phone]. [id number] tel:[phone] Souleymane Hillman Oct-0 Rk In Womens 2-201 [place]. 700 [facility], Medical PO Box Center 1522, Dr [facility], Rafy LOPEZ, [id number], [place], [id number] tel:+2 , . tel: [phone] Souleymane Hillman Other antepartum Sep-2 Shook Referring In Womens hemorrhage, first 0-201 [place]. Provider: Health [place], [id number] weeks [address] [place] [address] PO Box gestation of Medical Rk [place], 1522, [place] [address], [facility] 120, [place] [id number], [place] [address], Rafy LOPZE, tel:[phone] [facility] , . [id number]. tel: tel:[phone] Souleymane Hillman Threatened Sep-2 Rk Referring In Womens Ultrasound [id number] weeks 0-201 [place]. 700 Provider: Health DONNA, gestation of 7 [facility] Center Rk R, 1522, , [place] [address] Zofia, 120, Medical [place], Hillman, [place] [id number], [place], [place] 120, [place] [id number] Rafy, tel: , [place]. [place] tel: [phone]. [id number] tel:[phone] Souleymane Hillman Threatened Sep-1 Sobbing Referring In Womens , 8-201 [place]. Provider: Health DONNA, AntepartumRoutine [address] [place] [address] Care, Medical Rk [place], 1522, [id number] Center [facility] Zofia, weeks gestation Drive, [facility], of Suite Center [id number], 120, [place] 120, [place] Rafy Hillman, tel: [place], [address], [id number]. [place]. tel: tel: [phone] Souleymane Hillman Other viral Sep-1 Rk Referring In Womens diseases 4-201 [place]. 700 Provider: Sissy THOMPSON, complicating 7 Medical [facility] , first Center Rk R, 1522, trimesterEncntr , [place] [address] Zofia, screen for 120, Medical [place], infections w sexl Rafy, [place] [id number], mode of [place], [place] 120, [place] transmissEncounte [id number] Rafy, tel: r for screening , [place]. [place] for oth tel: [phone]. infec/parastc [id number] tel: diseasesEncounter [phone] for suprvsn of normal , first trimesterEncounte r for screening of [id number] weeks gestation of Souleymane Hillman Spotting Sep-1 Shook Referring In Womens complicating 2-201 [place]. Provider: Health DONNA, , first 7 700 [facility] trimester Medical Rk R, 1522, Center [address] Dr Zofia, [facility] Medical [place], 120, Center [id number], Hillman, Geoffrey 120, [place] Rafy LOPEZ, tel:[phone] [place], , [place]. [id number]. tel: tel: [phone] Associates Rafy Enc for November- Shook Referring In Womens surveillance of 0- [place]. Provider: Health [place], implantable 7 700 [place] PO Box subdermal Medical Rk R, 1522, contraceptiveEnco Center 700 [place], unter for , [facility], surveillance of 120, Center [id number], other Rafy, [facility] 120, [place] contraceptives Rafy LOPEZ, tel: [place], , [place]. [id number]. tel: tel:+ [phone] Souleymane Hillman Mar-3 Rk In Womens 0- [place]. 700 Health DONNA, 7 Medical PO Box Center 1522, , Geoffrey Armijo, 120, JOHN, Rafy, [id number], [place], [place] tel: , [place]. tel: [phone] Souleymane Hillman Mar-1 Rk In Womens - [place]. 700 Health DONNA, 7 Medical PO Box Center 1522, [place], 120, [place], Rafy, [id number], [place], [place] [id number] tel: , [place]. tel: [phone] Souleymane Hillman Encounter for Aug- Shook Referring In Womens surveillance of Tanisha. Provider: Health DONNA, other 7 700 [place] PO Box contraceptivesEnc Medical Rk R, 1522, ounter for Center [facility] [place], surveillance of , [facility] JOHN, other 120, Center [id number], contraceptivesEnc Rafy, [facility] 120, [place] ounter for Rafy LOPEZ, tel:+ test, [place], result negative , [place]. [id number]. tel: tel:[phone] Souleymane Hillman Dec-2 Rk Referring In Womens Follow-Up, [place]. 700 Provider: Health DONNA, Routine 6 [facility] PO Box Center Rk R, 1522, , [place] [address] Zofia, 120, Medical Rafy LOPEZ, [place] [id number], [place], [place] 120, [place] [id number] Rafy, tel:+[phone] , [place]. [place], tel:+[phone]. [id number] tel:[phone] Associates Rafy Puerperal Dec-1 Rk Referring In Womens psychosis 4-201 [place]. 700 Provider: Health DONNA, 6 [facility] Rk [place] 1522, , [address], 120, Medical [facility] [id number], [place], [place] 120, [place] [id number] Rafy, tel:+[phone] , [place]. [place], tel:[phone]. [id number] tel:[phone] Souleymane Hillman Oct-2 Rk Referring In Womens 7-201 [place]. 700 Provider: Health DONNA, 6 [facility] Rk [place] 1522, , [place] [address] [place], 120, Medical Rafy [facility] [id number], [place], [facility] 120, [place] [id number] Rafy, tel:+316 , [place]. [place], tel: [phone]. [id number] tel:[phone] Souleymane Hillman Sep-2 Rk Referring In Womens 2-201 [place]. 700 Provider: Sissy THOMPSON, 6 [facility] [address], [address], 120, Medical Rafy [facility] [id number], [place], [facility] 120, [place] [id number] Rafy, tel:+ , [place]. [place], tel: [phone]. [id number] tel:[phone] Souleymane Hillman Vaginal burning Aug-2 Rk Referring In Womens 2-201 [place]. 700 Provider: Sissy THOMPSON, 6 [facility] Rk [place] [address], 120, Medical Rafy [facility] [id number], [place], [facility] 120, [place] [id number] Rafy, tel:+[phone] , [place]. [place] tel: [phone]. [id number] tel:[phone] Souleymane Hillman Encounter for Apr-1 Rk Referring In Womens screening for oth 3-201 [place]. 700 Provider: Sissy THOMPSON, infec/parastc 6 [facility] Box diseases Center Rk [place], 1522, , [place] [address] [place], 120, Medical Rafy [facility] [id number], [place], [facility] 120, [place] [id number] Rafy, tel:+ , [place]. [place], tel: [phone]. [id number] tel:[phone] Associates Rafy Herpesviral Mar-0 Rk Referring In Womens vulvovaginitisAnx 3-201 [place]. 700 Provider: Sissy THOMPSON, iety disorder, 6 [facility] unspecified Center Rk [place], 1522, , [address], 120, Medical Rafy [facility] [id number], [place], [facility] 120, [place] [id number] Rafy, tel:+ , [place]. [place], tel: [phone]. [id number] tel:[phone] Souleymane Hillman Dec-1 Rk Referring In Womens 2-201 [place]. 700 Provider: Sissy THOMPSON, 4 [facility] Box [place] Rk [place], 1522, , [address], 120, Medical Rafy [facility] [id number], [place], [facility] 120, [place] [id number] Rafy, tel: , [place]. [place], tel: [phone]. [id number] tel:[phone] Souleymane Hillman Sep-3 Rk Referring In Womens 0-201 [place]. 700 Provider: Sissy THOMPSON, 4 [facility] Rk [place] 1522Dr, [place] [address] [place], 120, Medical Rafy [facility] [id number], [place], [facility] 120, [place] [id number] Rafy, tel: , [place]. [place] tel: [phone]. [id number] tel:[phone] Souleymane Hillman Philip-0 Macias In Womens 8-201 [place]. Sissy THOMPSON, 0 700 [facility] 1522, Center Dr Zofia, [facility] [place], 120, [id number] Bridges, JOHN, tel:[phone] , [place]. tel:[phone] Family History Family Member Diagnosis Age At [...] Record Payers Payer name Insurance type Covered republican ID Authorization(s) [facility] [id number] [employer] [place] - Medicaid MC [id number] [facility] [id number] [employer] [place] - Medicaid MC [id number] [facility] [id number] [facility] [id number] [facility] [id number] [employer] [place] - Medicaid MC [id number] [facility] [id number] [employer] [place] - Medicaid MC [id number] Social History Type Description Quantity Date Captured Unknown Vital Signs Date / Height Weight BMI Pulse Blood Temperature Respiratory Body Head BMI Time: Rate Pressure Rate Surface Circumference percentile Area Unknown Chief Complaint And Reason For Visit Unknown Chief Complaint And Reason For Visit Reason For Referral Reason For Referral Unknown Plan Of Care Date Type Action Status Appointment Hannah Phillips BOOKED Appointment Hannah Phillips BOOKED Future Order: Radiology Order Ultrasound < 14 wks ([id number]) Ordered Future Order: Lab Order Pap Smear [...]
--- OUTSIDE RECORDS SUMMARY | 2017-10-21 07:58 | External Medical Summary | Referral Summary ---
:1994 Author Organization [facility] [place], [facility] Address [address] [place] [address] [place] [address] Care Team Providers Name Role Phone No PCP, States Primary Care Physician Encounter [facility] [id number] Date(s): 08/11/15 - 08/11/15 [facility]ah [place], [address] [place] [address]- [place] Discharge Diagnosis: Right foot injury Discharge Diagnosis: Right foot pain Discharge Disposition: 01-Home or Self Care Attending Physician: Rafa Falk PA-C Admitting Physician: Rafa Falk PA-C Vital Signs Most recent to oldest [Reference Range]: 1 Temperature Tympanic [36.6-38.1 degC] 37 degC (08/11/15 3:39 PM) Peripheral Pulse Rate [60-100 bpm] 81 bpm (08/11/15 3:39 PM) Blood Pressure [90-140/60-90 mmHg] 98/62 mmHg (08/11/15 3:39 PM) SpO2 98 % (08/11/15 3:39 PM) Problem List No data available for this section Allergies, Adverse Reactions, Alerts Substance Reaction Severity Status sulfamethoxazole Active Medications Valtrex 500 mg oral tablet 500 mg 1 tabs, Oral, q12hr, 0 Refill(s) Start Date: 08/11/15 Status: Ordered Results No data available for this section Immunizations No data available for this section Procedures No data available for this section Social History Social History Type Response Smoking Status Never smoker Assessment and Plan No data available for this section
--- OUTSIDE RECORDS SUMMARY | 2017-10-21 07:58 | External Medical Summary | Continuity of Care Document ---
:1995 Author Organization [facility] Address [address] [place], [place] [address] Phone Support Name Relationship Address Phone Griffin Phillips parent [address] [phone] [place] [address] Allergies, Adverse Reactions, Alerts Substance Reaction Severity [...] suprvsn of normal - , second trimester 27 weeks gestation of - Spotting complicating , [...] second trimester 23 weeks gestation of - Encounter for suprvsn of normal - , second trimester 19 weeks gestation of - Encounter for suprvsn of normal - , third trimester 29 weeks gestation of - Vaginal Lesion - Active Vaginal Discharge - Active Herpes Simplex Virus Active Anxiety Disorder Active Active Procedures Procedure Date OB Visit No Charge Results Test Name Date and Time Measure Units Reference Range Abnormal Flag Comments Panel Description: Glucose [Mass/volume] in Serum or Plasma --1 hour post 50 g glucose PO GLUCOSE, 106 mg/dL <140 N Test performed at [facility] GESTATIONAL SCREEN 11:24:00 W[employer] (50G)-[address] [place] [address]Hsdhijkn: ANDREA FOWLER DO,MPH Panel Description: HEMOGLOBIN + HEMATOCRIT HEMOGLOBIN 11:24:00 11.9 g/dL 11.7-15.5 N HEMATOCRIT 11:24:00 35.1 % 35.0-45.0 N REPORT COMMENT:FASTING :NOTest performed at [facility] ([facility]) [id number] [place] [address]Sovawcrv: ANDREA FOWLER DO,MPH Advance Directives Directive Yes / No Effective Date File Name Unknown Encounters Encounter Practice Location Reason(s) Diagnoses Date Provider Care Team Description For Visit Members Souleymane Hillman Encounter for Herman-1 Rk Referring In Womens suprvsn of normal 8-201 Javed. 700 Provider: Health DONNA, , third 8 Medical Javed PO Box [email or web address] weeks Center Rk R, 1522, gestation of [place], 120, Medical [facility] [id number], [place], [place] 120, [place] [id number] Rafy, tel: , [place]. [place], tel: [phone]. [id number] tel:[phone] Souleymane Hillman Encounter for Herman-0 Rk Referring In Womens suprvsn of normal 4-201 Javed. 700 Provider: Health DONNA, , second 8 Medical Javed PO Box [email or web address] weeks Center Rk R, 1522, gestation of Geoffrey [place], 120, Medical [facility] [id number], [place], [place] 120, [place] [id number] Rafy, tel: , [place]. [place], tel: [phone]. [id number] tel:[phone] Souleymane Hillman Encounter for Dec-0 Rk Referring In Womens suprvsn of normal 7-201 Javed. 700 Provider: Sissy THOMPSON, , second 7 Medical Javed PO Box [id number] weeks Center Rk R, 1522, gestation of Geoffrey [place], 120, Medical [facility] [id number], [place], [place] 120, [place] [id number] Rafy, tel: , [place]. [place], tel: [phone]. [id number] tel:[phone] Souleymane Hillman Encounter for Nov-0 Rk Referring In Womens suprvsn of normal 9-201 Javed. 700 Provider: Sissy THOMPSON, , second 7 Medical Javed PO Box [id number] weeks Center Rk R, 1522, gestation of Geoffrey [place], 120, Medical [facility] [id number], [place], [place] 120, [place] [id number] Rafy, tel: , . ID tel: [phone]. [phone] tel:[phone] Souleymane Hillman Other antepartum Nov-0 Rk Referring In Womens Ultrasound hemorrhage, 9-201 Javed. 700 Provider: Sissy THOMPSON, second 7 Medical [place] PO Box [id number] weeks Center Rk [place], 1522, gestation of Geoffrey [place], 120, Medical IDRafy, [place] [id number], [place], Geoffrey 120, [place] [id number] Rafy, tel: , [place]. [place], tel: [phone]. [id number] tel:[phone] Souleymane Hillman Encounter for Oct-1 Rk Referring In Womens suprvsn of normal 2-201 [place]. 700 Provider: Sissy THOMPSON, , second 7 Medical [facility] Box [id number] weeks Center Rk [place], 1522, gestation of Geoffrey [place], 120, Medical [facility] [id number], [place], [facility] 120, [place] [id number] Rafy, tel: , [place]. [place], tel: [phone]. [id number] tel:[phone] Souleymane Hillman Other antepartum Sep-2 Shook Referring In Womens hemorrhage, first 0-201 Tanisha. Provider: Sissy THOMPSON, [id number] weeks [address] [place] [address] Box gestation of [facility] Rk [place], 1522, Center [address], [facility], 120, [place] [id number], [place], [facility] 120, [place] Rafy LOPEZ, tel: [phone] [place], , [place]. [id number]. tel: tel: [phone] Souleymane Hillman Threatened Sep-2 Rk Referring In Womens Ultrasound [email or web address] weeks 0-201 [place]. 700 Provider: Sissy THOMPSON, gestation of 7 Medical [facility] Box Center Rk [place], 1522, Geoffrey [place], 120, Medical Rafy LOPEZ, [place] [id number], [place], Geoffrey 120, [place] [id number] Rafy, tel: , [place]. [place], tel: [phone]. [id number] tel:[phone] Souleymane Hillman Threatened Sep-1 Sobbing Referring In Womens , 8-201 [place]. Provider: Health DONNA, AntepartumRoutine 7 700 Javed PO Box Care, Medical Rk R, 1522, [id number] Center 700 [place], weeks gestation [facility], of Suite Center [id number], 120, Geoffrey 120, [place] Rafy Hillman, [place]: [place], [id number], [id number]. [place]. tel: tel: [phone] Souleymane Hillman Other viral Sep-1 Rk Referring In Womens diseases 4-201 [place]. 700 Provider: Sissy THOMPSON, complicating 7 Medical Javed PO Box , first Center Rk R, 1522, trimesterEncntr , [address], screen for 120, [facility], infections w sexl Rafy, [place] [id number], mode of [place], Geoffrey 120, [place] transmissEncounte [id number] Rafy, tel: r for screening , [place]. [place] for oth tel:[phone]. infec/parastc [id number] tel: diseasesEncounter [phone] for suprvsn of normal , first trimesterEncounte r for screening of weeks gestation of Souleymane Hillman Spotting Sep-1 Shook Referring In Womens complicating 2-201 Tanisha. Provider: Sissy THOMPSON, , first 7 700 Javed PO Box trimester Medical Rk R, 1522, Center [facility] Zofia, , [facility], 120, Center [id number], Rafy, [facility] 120, [place] Rafy LOPEZ, tel:[phone] [place], , [place]. [id number]. tel: tel: [phone] Souleymane Hillman Enc for November- Shook Referring In Womens surveillance of 0-201 Tanisha. Provider: Sissy THOMPSON, implantable 7 700 [facility] Box subdermal Medical Rk R, 1522, contraceptiveEnco Center [address] [place] [address], unter for Dr, [facility], surveillance of 120, Center [id number], other Rafy, [facility] 120, [place] contraceptives Rafy LOPEZ, tel:[phone] [place], , [place]. [id number]. tel: tel: [phone] Souleymane Hillman Mar-3 Rk In Womens 0-201 [place]. 700 Health DONNA, 7 Medical PO Box Center 1522, , Geoffrey Armijo, 120, [place], Rafy, [id number], [place], [place] [id number] tel: , [place]. tel: [phone] Souleymane Hillman Mar-1 Rk In Womens 6-201 [place]. 700 Health DONNA, 7 Medical PO Box Center 1522, Geoffrey Rome, 120, JOHN, Rafy, [id number], [place], [place] [id number] tel: , [place]. tel: [phone] Souleymane Hillman Encounter for Aug- Shook Referring In Womens surveillance of 7- Tanisha. Provider: Sissy THOMPSON, other [address] [place] [address] PO Box contraceptivesEnc Medical Rk [place], 1522, ounter for [place] [address] Zofia, surveillance of , [facility], [place] [address], [place] , contraceptivesEnc Rafy, [facility] 120, ounter for Rafy LOPEZ, tel: test, [place], result negative , [place]. [id number]. tel: tel: [phone] Souleymane Hillman Dec-2 Rk Referring In Womens Follow-Up, [place]. 700 Provider: Sissy THOMPSON, Routine 6 [facility] Box [place] Rk [place] 1522, Geoffrey [place], 120, Medical [facility] [id number], [place], [facility] 120, [place] [id number] Rafy, tel: , [place]. [place], tel: [phone]. [id number] tel:[phone] Souleymane Hillman Puerperal Dec-1 Rk Referring In Womens psychosis 4-201 [place]. 700 Provider: Sissy THOMPSON, 6 [facility] Box [place] Rk [place], 1522, Geoffrey [place], 120, Medical Rafy LOPEZ, [place] [id number], [place], [facility] 120, [place] [id number] Rafy, tel: , [place]. ID tel: [phone]. [id number] tel:[phone] Souleymane Hillman Oct-2 Rk Referring In Womens 7-201 [place]. 700 Provider: Sissy THOMPSON, 6 [facility] Box [place] Rk [place], 1522, , Geoffrey 700 Zofia, 120, Medical Raf[facility] [id number], [place], Geoffrey 120, [place] [id number] Rafy, tel:+ , [place]. ID tel: [phone]. [id number] tel:[phone] Souleymane Hillman Sep-2 Rk Referring In Womens 2-201 [place]. 700 Provider: Sissy THOMPSON, 6 [facility] Box [place] Rk [place], 1522, , Geoffrey 700 Zofia, 120, Medical Raf[facility] [id number], [place], [facility] 120, [place] [id number] Rafy, tel: , [place]. [place] tel: [phone]. [id number] tel:[phone] Souleymane Hillman Vaginal burning Aug-2 Rk Referring In Womens 2201 [place]. 700 Provider: Sissy THOMPSON, 6 [facility] Rk [place] 1522, , [place] [address] Zofia, 120, Medical Raf[facility] [id number], [place], Geoffrey 120, [place] [id number] Rafy, tel: , [place]. [place], tel: [phone]. [id number] tel:[phone] Souleymane Hillman Encounter for Apr-1 Rk Referring In Womens screening for oth 3- [place]. 700 Provider: Sissy THOMPSON infec/parastc 6 [facility] diseases Center Rk [place], 1522, , Geoffrey 700 [place], 120, Medical Raf[facility] [id number], [place], Geoffrey 120, [place] [id number] Rafy, tel:+ , [place]. [place] tel: [phone]. [id number] tel:[phone] Souleymane Hillman Herpesviral Mar-0 Rk Referring In Womens vulvovaginitisAnx 3 [place]. 700 Provider: Health PA, iety disorder, 6 Medical [facility] Box unspecified Center Rk [place], 1522, , Geoffrey 700 [place], 120, Medical Raf[facility] [id number], [place], [facility] 120, [place] [id number] Rafy, tel:+ , [place]. [place], tel: [phone]. [id number] tel:[phone] Associates Rafy Dec-1 Rk Referring In Womens 2-201 [place]. 700 Provider: Health DONNA, 4 [facility] Cyrus Ayoub, , [place] [address] [place], 120, Medical Raf[facility] [id number], [place], [facility] 120, [place] [id number] Rafy, tel:+ , . [place], tel: [phone]. [id number] tel:[phone] Associates Rafy Sep-3 Rk Referring In Womens 0-201 [place]. 700 Provider: Health DONNA, 4 [facility] Moe Ayoub2, , [place] [address] [place], 120, Medical Raf[facility] [id number], [place], [facility] 120, [place] [id number] Rafy, tel: , . [place], tel: [phone]. [id number] tel:[phone] Associates Rafy Philip-0 Macias In Womens 8-201 Nathalia. Health PA, 0 700 [place] [address], Center Dr Zofia, [facility] [place], 120, [id number], Rafy, JOHN, tel:+ [phone] , [place]. tel: [phone] Family History Family Member Diagnosis Age At [...] Insurance type Covered constitution party ID Authorization(s) [facility] [id number] [employer] [place] Medicaid [place] [id number] [facility] [id number] [employer] [place] [facility] Medicaid [place] [id number] [facility] [id number] [facility] [id number] [facility] [id number] [employer] [place] Medicaid [place] [id number] [facility] [id number] [employer] [place] [id number] Social History Type Description Quantity Date Captured Alcohol Use Details No Caffeine Use Details Unknown Tobacco Use Status Smoking Status Former smoker Vital Signs Date / Height Weight BMI Pulse Blood Temperature Respiratory Body Head BMI Time: Rate Pressure Rate Surface Circumference percentile Area 129.60 21.0 115/ lbs 4 mm[Hg] 10:22 kg/m AM eter (2) Chief Complaint And Reason For Visit Unknown Chief Complaint And Reason For Visit Reason For Referral Reason For Referral Unknown Plan Of Care Date Type Action Status Appointment Hannah Phillips BOOKED Future Order: Radiology Order Ultrasound < 14 wks (16400) Ordered Future Order: Radiology Order Complete OB Ultrasound > 14 Ordered Weeks (70450) Future Order: Lab Order Pap Smear With [...]
--- OUTSIDE RECORDS SUMMARY | 2017-10-21 07:58 | External Medical Summary | Continuity of Care Document ---
:1995 Author Organization [facility] Address [address] [place], [place] [address] Phone Support Name Relationship Address Phone Griffin Phillips parent [address] [phone] [place] [address] Allergies, Adverse Reactions, Alerts Substance Reaction Severity [...] Routine - Spotting complicating , first trimester Herpesviral vulvovaginitis Anxiety disorder, unspecified Puerperal psychosis Vaginal burning Encounter for screening for oth - infec/parastc diseases Encounter for surveillance of other - contraceptives Encounter for surveillance of other contraceptives Encounter for test, result - negative Enc for surveillance of implantable subdermal contraceptive Encounter for surveillance of other - contraceptives Vaginal Lesion - Active Vaginal Discharge - Active Herpes Simplex Virus Active Anxiety Disorder Active Active Procedures Procedure Date No Charge Office Visit Results Test Name Date and Time Measure Units Reference Range Abnormal Flag Comments Unknown Advance Directives Directive Yes / No Effective Date File Name Unknown Encounters Encounter Practice Location Reason(s) Diagnoses Date Provider Care Team Description For Visit Members Souleymane Melara Apr- Shook Referring In Womens complicating 2-201 Tanisha. Provider: Health DONNA, , first 7 700 Javed PO Box trimester Medical Rk [place], 1522, Center [address], [facility] Aniyah LOPEZ, 120, Center [id number], Rafy, [facility] 120, Rafy LOPEZ, tel:[phone] [place], , [place]. [id number]. tel: tel: [phone] Souleymane Hillman Enc for November- Shook Referring In Womens surveillance of 0-201 Tanisha. Provider: Health DONNA, implantable 7 700 Javed PO Box subdermal Medical Rk R, 1522, contraceptiveEncoun Center [facility] Zofia, ter for , [facility] Aniyah [place], surveillance of 120, Center , other Rafy, [facility] 120, [place] contraceptives Rafy LOPEZ, tel:[phone] [place], , [place]. [id number]. tel: tel: [phone] Souleymane Hillman Sep-3 Rk In Womens 0-201 [place]. 700 Health DONNA, 7 Medical PO Box Center 1522, Geoffrey Rome, 120, Rafy LOPEZ, [id number], [place], [place] [id number] tel: , [place]. tel: [phone] Souleymane Hillman Mar-1 Rk In Womens 6-201 [place]. 700 Health [place], 7 Medical PO Box Center 1522, Geoffrey [place], 120, [place], Rafy, [id number], [place], [place] [id number] tel:316 , [place]. tel: [phone] Souleymane Hillman Encounter for Shook Referring In Women surveillance of 7-201 Tanisha. Provider: Health DONNA, other 7 700 Javed PO Box contraceptivesEncou Medical Rk R, 1522, nter for Center [facility] Zofia, surveillance of , [facility] Aniyah LOPEZ, other 120, Center [id number], contraceptivesEncou [place], [facility] 120, [place] nter for JOHN Hillman, tel: test, result [place], negative , [place]. [id number]. tel: tel: [phone] Associates Rafy Dec-2 Rk Referring In Womens Follow-Up, Routine - [place]. 700 Provider: Sissy THOMPSON, 6 [facility] [address], [address], 120, Medical JOHN [facility] [id number], [place], [facility] 120, [place] [id number] Rafy, tel: , [place]. [place] tel: [phone]. [id number] tel:[phone] Souleymane Hillman Puerperal psychosis Dec-1 Rk Referring In Womens 4-201 [place]. 700 Provider: Sissy THOMPSON, 6 [facility] [address] [place] [address] [place], 120, Medical [facility] [id number], [place], [facility] 120, [place] [id number] Rafy, tel: , [place]. [place] tel: [phone]. [id number] tel:[phone] Souleymane Hillman Oct-2 Rk Referring In Womens - [place]. 700 Provider: Sissy THOMPSON, 6 [facility] [address] [place] [address] [place], 120, Medical Rafy [facility] [id number], [place], [facility] 120, [place] [id number] Rafy, tel: , [place]. [place], tel: [phone]. [id number] tel:[phone] Souleymane Hillman Sep-2 Rk Referring In Womens 2-201 [place]. 700 Provider: Sissy THOMPSON, 6 [facility] Cyrus Ayoub, , [facility] Kay [place], 120, Medical Rafy [facility] [id number], [place], [facility] 120, [place] [id number] Rafy, tel: , . [place] tel: [phone]. [id number] tel:[phone] Souleymane Hillman Vaginal burning Aug-2 Rk Referring In Womens 2-201 [place]. 700 Provider: Sissy THOMPSON, 6 [facility] PO Box Center Cyrus Ayoub, , Geoffrey 700 [place], 120, Medical Rafy LOPEZ, [place] [id number], [place], [facility] 120, [place] [id number] Rafy, tel: , [place]. [place] tel: [phone]. [id number] tel:[phone] Souleymane Hillman Encounter for Apr-1 Rk Referring In Womens screening for oth 3-201 [place]. 700 Provider: Sissy THOMPSON, infec/parastc 6 [facility] Box diseases Center [address], Geoffrey 700 [place], 120, Medical Rafy [facility] [id number], [place], [facility] 120, [place] [id number] Rafy, tel: , [place]. [place] tel: [phone]. [id number] tel:[phone] Souleymane Hillman Herpesviral Mar-0 Rk Referring In Womens vulvovaginitisAnxie 3-201 [place]. 700 Provider: Sissy THOMPSON, ty disorder, 6 [facility] Box unspecified Center [address], Geoffrey [facility] Zofia, 120, Medical Rafy [facility] [id number], [place], [facility] 120, [place] [id number] Rafy, tel: , [place]. [place] tel: [phone]. [id number] tel:[phone] Souleymane Hillman Dec-1 Rk Referring In Womens 2-201 [place]. 700 Provider: Sissy THOMPSON, 4 [facility] PO Box Center [address], Geoffrey 700 [place], 120, Medical Rafy LOPEZ, [place] [id number], [place], Geoffrey 120, [place] [id number] Rafy, tel: , . [place] tel: [phone]. [id number] tel:[phone] Souleymane Hillman Sep-3 Rk Referring In Womens 0-201 [place]. 700 Provider: Sissy THOMPSON, 4 [facility] PO Box Center [address], Geoffrey 700 [place], 120, Medical [place], [facility] [id number], [place], [facility] 120, [place] [id number] Hillman, tel: , [place]. [place], tel: [phone]. [id number] tel:[phone] Souleymane Hillman Philip-0 Macias In Womens 8-201 [facility], 0 700 PO [facility] 1522, Center Dr Zofia, Geoffrey [place], 120, [id number], Hillman, [facility], tel: [phone] , [place]. tel: [phone] Family History Family Member Diagnosis Age At [...] name Insurance type Covered libertarian ID Authorization(s) [facility] [id number] [facility] [id number] [facility] BL [id number] [facility] [id number] [employer] [place] Medicaid MC [id number] [facility] [id number] [employer] [place] - Medicaid MC [id number] Social History Type Description Quantity Date Captured Alcohol Use Details No Caffeine Use Details Unknown Tobacco Use Status Smoking Status Former smoker Non-Smoking Tobacco Use : No Details Available : No Details Available Details Vital Signs Date / Height Weight BMI Pulse Blood Temperature Respiratory Body Head BMI Time: Rate Pressure Rate Surface Circumference percentile Area 116.20 68 130/84 -2017 lbs /min mm[Hg] 12:40 PM Chief Complaint And Reason For Visit Unknown Chief Complaint And Reason For Visit Reason For Referral Reason For Referral Unknown Plan Of Care Date Type Action Status Appointment Hannah Phillips BOOKED Future Order: Lab Order Pap Smear With [...] Treatment Unknown Instructions Date Instruction Additional Information toxoplasmosis precautions (cats / raw meat) sexual [...]
--- OUTSIDE RECORDS SUMMARY | 2017-10-21 07:58 | External Medical Summary | Continuity of Care Document ---
:1995 Author Organization [facility] Address [address] [place], [place] [id number] Phone Support Name Relationship Address Phone Griffin Phillips parent [address] [phone] [place] [address] Allergies, Adverse Reactions, Alerts Substance Reaction Severity [...] Visit Members Souleymane Hillman Other antepartum Sep-2 Hsook Referring In Womens hemorrhage, first 0-201 [place]. Provider: Sissy THOMPSON, [id number] weeks 7 700 [facility] gestation of Medical Rk [place], 1522, Center [facility] Dr Zofia, [facility], 120, [place] [id number], [facility] 120, Rafy LOPEZ, tel:+ [phone] [place], , . [id number]. tel: tel:[phone] Souleymane Hillman Threatened Sep-2 Rk Referring In Womens Ultrasound [id number] weeks 0-201 [place]. 700 Provider: Sissy THOMPSON, gestation of 7 Medical [facility] Box Center Rk [place], 1522, [address], 120, Medical Rafy LOPEZ, [place] [id number], [facility] 120, [place] [id number] Rafy, tel: , . [place], tel: [phone]. [id number] tel:[phone] Souleymane Hillman Threatened Sep-1 Sobbing Referring In Womens , 8-201 [place]. Provider: Sissy THOMPSON, AntepartumRoutine 7 700 [facility] Box Care, Medical Rk R, 1522, [id number] Center [facility] [place], weeks [facility], of Suite Center [id number], 120, Geoffrey 120, [place] Rafy Hillman, tel:+ [place], [address], [id number]. [place]. tel: tel: [phone] Souleymane Hillman Other viral Sep-1 Rk Referring In Womens diseases 4-201 [place]. [facility] Provider: Sissy THOMPSON, complicating 7 Medical Javed PO Box , first Center Rk R, 1522, trimesterEncntr , [address], screen for 120, [facility], infections w sexl Rafy, [place] [id number], mode of [place], [facility] 120, [place] transmissEncounte [id number] Rafy, tel: r for screening , [place]. [place], for oth tel: [phone]. infec/parastc [id number] tel: diseasesEncounter [phone] for suprvsn of normal , first trimesterEncounte r for screening of weeks gestation of Souleymane Hillman Spotting Sep-1 Shook Referring In Womens complicating 2-201 [place]. Provider: Sissy THOMPSON, , first 7 700 Javed PO Box trimester Medical Rk R, 1522, Center [facility] Dr Zofia, [facility], 120, Center [id number], [facility], [place] Rafy LOPEZ, tel:[phone] [place], , [place]. [id number]. tel: tel: [phone] Souleymane Phipps for May-3 Shook Referring In Womens surveillance of 0-201 [place]. Provider: Health DONNA, implantable 7 700 Javed PO Box subdermal Medical Rk R, 1522, contraceptiveEnco Center [facility] jasmyne Armijoer for , [facility], surveillance of 120, Center [id number], other Rafy, [facility] 120, [place] contraceptives Rafy LOPEZ, tel:[phone] [place], , [place]. [id number]. tel: tel: [phone] Souleymane Hillman Mar-3 Rk In Womens 0-201 [place]. 700 Health DONNA, 7 Medical PO Box Center 1522, Geoffrey [place], 120, Rafy LOPEZ, [id number], [place], [place] [id number] tel: , [place]. tel: [phone] Souleymane Hillman Mar-1 Rk In Womens 6-201 [place]. 700 Sissy THOMPSON, 7 [facility] PO Box Center 1522, Geoffrey [place], 120, Rafy LOPEZ, [id number], [place], [place] [id number] tel: , [place]. tel: [phone] Souleymane Hillman Encounter for Aug- Shook Referring In Womens surveillance of - [place]. Provider: Sissy THOMPSON, other [address] [place] [address] contraceptivesEnc Medical Rk [place], 1522, ounter for Center [facility] [place], surveillance of , [facility] JOHN, [facility] 120, [place] , contraceptivesEnc Hillman, [facility] 120, ounter for Rafy LOPEZ, tel: test, [place], result negative , [place]. [id number]. tel: tel: [phone] Souleymane Hillman Dec-2 Rk Referring In Womens Follow-Up, [place]. 700 Provider: Sissy THOMPSON, Routine 6 [facility] Rk [place], 1522, Geoffrey [place], 120, Medical Rafy LOPEZ, [place] [id number], [place], [facility] 120, [place] [id number] Rafy, tel: , [place]. [place], tel:[phone]. [id number] tel:[phone] Souleymane Hillman Puerperal Dec-1 Rk Referring In Womens psychosis 4-201 [place]. 700 Provider: Sissy THOMPSON, 6 [facility] Rk [place], 1522, Geoffrey [place], 120, Medical Rafy [facility] [id number], [place], [facility] 120, [place] [id number] Rafy, tel: , . [place] tel: [phone]. [id number] tel:[phone] Souleymane Hillman Oct-2 Rk Referring In Womens 7-201 [place]. 700 Provider: Sissy THOMPSON, 6 [facility] Box Center Moe Ayoub[address]Dr, Geoffrey 700 [place], 120, Medical Rafy LOPEZFormerly [facility] [id number], [place], Geoffrey 120, [place] [id number] Rafy, tel:+ , [place]. [place], tel: [phone]. [id number] tel:[phone] Associates Rafy Sep-2 Rk Referring In Womens 2-201 [place]. 700 Provider: Sissy THOMPSON, 6 [facility] Box [place] [address], Geoffrey 700 [place], 120, Medical Rafy LOPEZFormerly [facility] [id number], [place], Geoffrey 120, [place] [id number] Rafy, tel:+ , [place]. [place], tel: [phone]. [id number] tel:[phone] Associates Rafy Vaginal burning Aug-2 Rk Referring In Womens [place]. 700 Provider: Sissy THOMPSON, 6 [facility] [address], Geoffrey Kay Armijo, 120, Medical Rafy LOPEZFormerly [facility] [id number], [place], [facility] 120, [place] [id number] Rafy, tel:+ , [place]. [place], tel: [phone]. [id number] tel:[phone] Associates Rafy Encounter for Apr-1 Rk Referring In Womens screening for oth [place]. 700 Provider: Sissy THOMPSON, infec/parastc 6 [facility] Box diseases Center [address], Geoffrey 700 [place], 120, Medical Rafy LOPEZFormerly [facility] [id number], [place], Geoffrey 120, [place] [id number] Rafy, tel: , [place]. [place], tel: [phone]. [id number] tel:[phone] Associates Rafy Herpesviral Mar-0 Rk Referring In Womens vulvovaginitisAnx [place]. 700 Provider: Sissy THOMPSON, iety disorder, 6 [facility] Box unspecified Center Cyrus [address], Geoffrey 700 [place], 120, Medical Rafy LOPEZFormerly [facility] [id number], [place], Geoffrey 120, [place] [id number] Rafy, tel:+ , [place]. [place], tel: [phone]. [id number] tel:[phone] Souleymane Hillman Dec-1 Rk Referring In Womens 2-201 [place]. 700 Provider: Health DONNA, 4 [facility] Cyrus Ayoub, , [address], 120, Medical Rafy LOPEZFormerly [facility] [id number], [place], Geoffrey 120, [place] [id number] Rafy, tel:+ , [place]. [place], tel: [phone]. [id number] tel:[phone] Souleymane Hillman Sep-3 Rk Referring In Womens 0-201 [place]. 700 Provider: Health PA, 4 [facility] Cyrus Ayoub, , [facility] 700 [place], 120, Medical Rafy L[facility]ZFormerly [facility] [id number], [place], Geoffrey 120, [place] [id number] Rafy, tel:+ , [place]. [place], tel: [phone]. [id number] tel:[phone] Souleymane Hillman Philip-0 Macias In Womens 8-201 [place]. Health PA, [address] [place] [address] 1522, [place] Dr Zofia, [facility], 120, [id number], Hillman, JOHN, tel:+ [phone] , . tel: [phone] Family History Family Member Diagnosis Age At [...] Insurance type Covered constitution party ID Authorization(s) [facility] [place] [id number] [facility] [id number] [facility] [id number] [facility] [id number] [place] Medicaid [place] [id number] [place] [id number] [place] Medicaid [place] [id number] Social History Type Description Quantity Date Captured [...] Order: Radiology Order Ultrasound < 14 wks ([id number]) Ordered Future Order: Lab Order Pap Smear [...]
--- OUTSIDE RECORDS SUMMARY | 2017-10-21 07:59 | External Medical Summary | Continuity of Care Document ---
:1995 Author Organization [facility] Address [address] [place], [place] [address] Phone Support Name Relationship Address Phone Griffin Phillips parent [address] [phone] [place] [address] Allergies, Adverse Reactions, Alerts Substance Reaction Severity [...] hemorrhage, first 0-201 [place]. Provider: Sissy THOMPSON, [id number] weeks 7 700 [facility] Box gestation of Medical Rk [place] 1522, Center [address] Dr Zofia, [facility], 120, [place] [id number], [facility] 120, Rafy LOPEZ, tel: [phone] [place], , . [id number]. tel: tel:[phone] Souleymane Hillman Threatened Sep-2 Rk Referring In Womens Ultrasound [id number] weeks 0-201 [place]. 700 Provider: Sissy THOMPSON, gestation of 7 Medical [facility] Box Center Moe Ayoub2, , [address], 120, [facility], [place] [id number], [place], [facility] 120, [id number] Rafy, tel: , . [place], tel: [phone]. [id number] tel:[phone] Souleymane iHllman Threatened Sep-1 Sobbing Referring In Womens , 8-201 [place]. Provider: Sissy THOMPSON, AntepartumRoutine 7 700 [facility] Box Care, Medical Rk [place], 1522, [id number] Center 700 [place], weeks [facility], of Suite Center [id number], 120, Geoffrey 120, [place] Rafy Hillman, [place]: [place], [address], [id number]. [place]. tel: tel: [phone] Souleymane Hillman Other viral Sep-1 Rk Referring In Womens diseases 4-201 [place]. 700 Provider: Health DONNA, complicating 7 Medical [place] PO Box , first Center Rk R, 1522, trimesterEncntr , [place] [address] [place], screen for 120, [facility], infections w sexl Rafy, [place] [id number], mode of [place], [facility] 120, [place] transmissEncounte [id number] Rafy, tel: r for screening , [place]. [place], for oth tel: [phone]. infec/parastc [id number] tel: diseasesEncounter [phone] for suprvsn of normal , first trimesterEncounte r for screening of [id number] weeks gestation of Souleymane Hillman Spotting Sep-1 Shook Referring In Womens complicating 2-201 [place]. Provider: Health DONNA, , first 7 700 Javed PO Box trimester Medical Rk R, 1522, Center [facility] Dr Zofia, [facility], 120, Center [id number], [facility] 120, [place] Rafy LOPEZ, tel:[phone] [place], , [place]. [id number]. tel: tel: [phone] Souleymane Hillman Sep-1 Rk In Womens 2-201 [place]. 700 Health [place], 7 Medical PO Box Center 1522, Dr [facility] [place], 120, [place], Rafy, [id number], [place], [place] [id number] tel: , [place]. tel: [phone] Souleymane Hillman Enc for November-3 Shook Referring In Womens surveillance of 0-201 [place]. Provider: Health DONNA, implantable 7 700 [place] PO Box subdermal Medical Rk R, 1522, contraceptiveEnco Center [facility] oj Armijo for , [facility], surveillance of 120, Center [id number], other Rafy, [facility] 120, [place] contraceptives Rafy LOPEZ, tel:[phone] [place], , [place]. [id number]. tel: tel: [phone] Souleymane Hillman Mar-3 Rk In Womens 0-201 [place]. 700 Health DONNA, 7 Medical PO Box Center 1522, , Geoffrey Armijo, 120, JOHN, Rafy, [id number], [place], [place] tel: , [place]. tel: [phone] Souleymane Hillman Mar-1 Rk In Womens 6-201 [place]. 700 Health DONNA, 7 Medical PO Box Center 1522, , Geoffrey Armijo, 120, Rafy LOPEZ, [id number], [place], [place] [id number] tel: , [place]. tel: [phone] Souleymane Hillman Encounter for Herman- Shook Referring In Womens surveillance of 7- [place]. Provider: Health DONNA, other [address] [place] [address] contraceptivesEnc [facility] Rk [place], 1522, ountadriel for [place] Kay Armijo, surveillance of , [facility] JOHN, [facility] 120, [place] , contraceptivesEnc Rafy, [facility] 120, ounter for Rafy LOPEZ, tel: test, [place], result negative , [place]. [id number]. tel: tel: [phone] Souleymane Hillman Dec-2 Rk Referring In Womens Follow-Up, - [place]. 700 Provider: Sissy THOMPSON, Routine 6 [facility] Rk [place], 1522, Geoffrey [place], 120, Medical Rafy LOPEZ, [place] [id number], [place], [facility] 120, [place] [id number] Rafy, tel: , [place]. [place] tel:[phone]. [id number] tel:[phone] Souleymane Hillman Puerperal Dec-1 Rk Referring In Womens psychosis 4-201 [place]. 700 Provider: Sissy THOMPSON, 6 [facility] Rk [place], 1522, Geoffrey [place], 120, Medical [facility] [id number], [place], Geoffrey 120, [place] [id number] Rafy, tel:+[phone] , [place]. [place] tel:[phone]. [id number] tel:[phone] Souleymane Hillman Oct-2 Rk Referring In Womens 7-201 [place]. 700 Provider: Sissy THOMPSON, 6 [facility] Rk [place] 1522, , Geoffrey Kay [place], 120, Medical JOHN [facility] [id number], [place], Geoffrey 120, [place] [id number] Rafy, tel:+[phone] , [place]. [place] tel:[phone]. [id number] tel:[phone] Souleymane Hillman Sep-2 Rk Referring In Womens 2-201 [place]. 700 Provider: Sissy THOMPSON, 6 [facility] Rk [place] 1522, , [address], 120, Medical [facility]y [facility] [id number], [place], Geoffrey 120, [place] [id number] Rafy, tel:+316 , [place]. [place] tel:+[phone]. [id number] tel:[phone] Souleymane Hillman Vaginal burning Aug-2 Rk Referring In Womens 2-201 [place]. 700 Provider: Sissy THOMPSON, 6 [facility] Rk [place], 1522, , Geoffrey Kay [place], 120, Medical [facility]y [facility] [id number], [place], Geoffrey 120, [place] [id number] Rafy, tel:+ , [place]. [place] tel:[phone]. [id number] tel:[phone] Souleymane Hillman Encounter for Apr-1 Rk Referring In Womens screening for oth 3-201 [place]. 700 Provider: Sissy THOMPSON, infec/parastc 6 [facility] Center Rk [place] 1522, , Geoffrey 700 [place], 120, Medical [facility] [id number], [place], Geoffrey 120, [place] [id number] Rafy, tel:+[phone] , [place]. [place] tel:[phone]. [id number] tel:[phone] Souleymane Hillman Herpesviral Mar-0 Rk Referring In Womens vulvovaginitisAnx 3-201 [place]. 700 Provider: Health DONNA, ienicole disorder, 6 Medical [facility] Box unspecified Center [address], [address], 120, Medical [facility] [id number], [place], Geoffrey 120, [place] [id number] Rafy, tel:+316 , [place]. [place], tel: [phone]. [id number] tel:[phone] Souleymane Hillman Dec-1 Rk Referring In Womens 2-201 [place]. 700 Provider: Sissy THOMPSON, 4 [facility] [address], [place] [address] [place], 120, Medical [facility]y [facility] [id number], [place], Geoffrey 120, [place] [id number] Rafy, tel:+ , [place]. [place], tel: [phone]. [id number] tel:[phone] Souleymane Hillman Sep-3 Rk Referring In Womens 0-201 [place]. 700 Provider: Sissy THOMPSON, 4 [facility] [address], [place] [address] [place], 120, Medical [facility]y [facility] [id number], [place], Geoffrey 120, [place] [id number] Rafy, tel: , . [place], tel: [phone]. [id number] tel:[phone] Souleymane Hillman Philip-0 Macias In Womens 8-201 [place]. Health DONNA, [address] [place] [address] 1522, [place] Dr Zofia, [facility] [place], 120, [id number], Rafy, JOHN, tel:+ [phone] , [place]. tel: [phone] Family History Family Member Diagnosis Age At [...] Insurance type Covered constitution party ID Authorization(s) [place] [id number] [place] [id number] [place] [id number] [place] [id number] [place] Medicaid [place] [id number] [facility] [id number] [place] Medicaid [place] [id number] Social History Type Description Quantity Date Captured [...] Order: Radiology Order Ultrasound < 14 wks ([id number]) Ordered Future Order: Lab Order Pap Smear [...]
--- OUTSIDE RECORDS SUMMARY | 2017-10-21 07:59 | External Medical Summary | Continuity of Care Document ---
:1995 Author Organization [facility] Address [address] [place], [place] [address] Phone Support Name Relationship Address Phone Griffin Phillips parent [address] [phone] [place] [address] Allergies, Adverse Reactions, Alerts Substance Reaction Severity [...] second trimester 19 weeks gestation of - Spotting complicating , [...] For Visit Members Souleymane Hillman Encounter for Nov-0 Rk Referring In Womens suprvsn of normal 9-201 [place]. 700 Provider: Health [place], , second 7 Medical Javed PO Box [id number] weeks [place] Rk R, 1522, gestation of Geoffrey Rome, 120, Medical [facility] [id number], [place], [facility] 120, [place] [id number] Rafy, tel: , . [place], tel: [phone]. [id number] tel:[phone] Souleymane Hillman Other antepartum Nov-0 Rk Referring In Womens Ultrasound hemorrhage, 9-201 [place]. 700 Provider: [facility], second 7 Medical Javed PO Box [id number] weeks [place] Rk R, 1522, gestation of Geoffrey Rome, 120, Medical Raf[facility] [id number], [place], Geoffrey 120, [place] [id number] Rafy, tel:2 , [facility], tel: [phone]. [id number] tel:[phone] Souleymane Hillman Encounter for Oct-1 Rk Referring In Womens suprvsn of normal 2-201 [place]. 700 Provider: Sissy THOMPSON, , second 7 Medical [place] PO Box [email or web address] weeks Center Rk [place], 1522, gestation of Geoffrey Rome, 120, Medical PARafy, [place] [id number], PA, [place] 120, [place] [id number] Rafy, tel: , [place]. [place], tel: [phone]. [id number] tel:[phone] Souleymane Hillman Other antepartum Sep-2 Shook Referring In Womens hemorrhage, first 0-201 [place]. Provider: Sissy THOMPSON, [id number] weeks [address] [place] [address] Box gestation of Medical Rk [place], 1522, Center [address], [facility] [place], 120, Center [id number], Hillman, [facility] 120, [place] Rafy LOPEZ, tel:[phone] [place], , [place]. [id number]. tel: tel: [phone] Souleymane Hillman Threatened Sep-2 Rk Referring In Womens Ultrasound [id number] weeks 0-201 [place]. 700 Provider: Sissy THOMPSON, gestation of 7 Medical [facility] Box Center Rk [place], 1522, Geoffrey Rome, 120, Medical Raf[facility] [id number], [place], [place] 120, [place] [id number] Rafy, tel: , [place]. [place], tel: [phone]. [id number] tel:[phone] Souleymane Hillman Threatened Sep-1 Sobbing Referring In Womens , 8-201 [place]. Provider: Sissy THOMPSON, AntepartumRoutine [address] [place] [address] Care, Medical Rk R, 1522, [id number] Center Kay Armijo, weeks gestation [facility], [facility], of Suite Center [id number], 120, Geoffrey 120, [place] Rafy [place], [place]: [place], [address], [id number]. [place]. tel: tel: [phone] Souleymane Hillman Other viral Sep-1 Rk Referring In Womens diseases 4-201 [place]. 700 Provider: Sissy THOMPSON, complicating 7 Medical Javed PO Box , first Center Rk R, 1522, trimesterEncntr , [address], screen for 120, Medical [place], infections w sexl Rafy, [place] [id number], mode of [place], [facility] 120, [place] transmissEncounte [id number] Rafy, tel: r for screening , [place]. [place] for oth tel:[phone]. infec/parastc [id number] tel: diseasesEncounter [phone] for suprvsn of normal , first trimesterEncounte r for screening of [id number] weeks gestation of Associates Rafy Spotting Sep- Shook Referring In Womens complicating 2-201 [place]. Provider: [facility], , first 7 700 Javed PO Box trimester Medical Rk R, 1522, [place] [address] Zofia, , [facility], 120, Center [id number], [facility] 120, Rafy LOPEZ, tel:[phone] [place], , [place]. [id number]. tel: tel: [phone] Associates Rafy Phipps for November- Shook Referring In Womens surveillance of 0-201 [place]. Provider: [facility], [facility] [address] [place] [address] PO Box subdermal Medical Rk R, 1522, contraceptiveEnco Center [address] [place] [address], oj for , [facility], surveillance of 120, Center , other Hillman, [facility] 120, [place] contraceptives Rafy LOPEZ, tel:[phone] [place], , [place]. [id number]. tel: tel: [phone] Souleymane Hillman Mar-3 Rk In Womens 0-201 [place]. 700 [facility], 7 Medical PO Box Center 1522, Geoffrey Rome, 120, Rafy LOPEZ, , [place], [place] [id number] tel: , [place]. tel: [phone] Souleymane Hillman Mar-1 Rk In Womens 6-201 [place]. 700 [facility], 7 Medical PO Box Center 1522, Geoffrey Rome, 120, [place], Rafy, [id number], [place], [place] [id number] tel: , [place]. tel: [phone] Souleymane Hillman Encounter for Shook Referring In Womens surveillance of Tanisha. Provider: Sissy THOMPSON, other 7 700 [facility] contraceptivesEnc Medical Rk [place], 1522, ounter for [place] [address] Zofia, surveillance of , [facility], [facility] 120, [place] [id number], contraceptivesEnc [place], [facility] 120, [place] ounter for Rafy LOPEZ, tel: test, [place], result negative , [place]. [id number]. tel: tel: [phone] Souleymane Hillman Dec-2 Rk Referring In Womens Follow-Up, [place]. 700 Provider: Sissy THOMPSON, Routine 6 [facility] Rk [place], 1522, , [address], 120, Medical Raf[facility] [id number], [place], [facility] 120, [place] [id number] Rafy, tel: , [place]. [place], tel: [phone]. [id number] tel:[phone] Souleymane Hillman Puerperal Dec-1 Rk Referring In Womens psychosis [place]. 700 Provider: Sissy THOMPSON, 6 [facility] Rk [place], 1522, Dr [place] [address] Zofia, 120, Medical Raf[facility] [id number], [place], [facility] 120, [place] [id number] Rafy, tel: , [place]. [place], tel: [phone]. [id number] tel:[phone] Souleymane Hillman Oct-2 Rk Referring In Womens [place]. 700 Provider: Sissy THOMPSON, 6 [facility] Rk [place], 1522, , [place] [address] Zofia, 120, Medical Raf[facility] [id number], [place], [facility] 120, [place] [id number] Rafy, tel: , . [place] tel: [phone]. [id number] tel:[phone] Souleymane Hillman Sep-2 Rk Referring In Womens [place]. 700 Provider: Sissy THOMPSON, 6 [facility] Box Center Rk [place], 1522, , Geoffrey 700 [place], 120, Medical Raf[facility] [id number], [place], [facility] 120, [place] [id number] Rafy, tel:+ , [place]. [place] tel: [phone]. [id number] tel:[phone] Associates Rafy Vaginal burning Aug-2 Rk Referring In Womens [place]. 700 Provider: Sissy THOMPSON, 6 [facility] Box [place] Rk [place], 1522, , Geoffrey 700 [place], 120, Medical Rafy [facility] [id number], PA, [facility] 120, [place] [id number] Rayf, tel:+ , . [place] tel: [phone]. [id number] tel:[phone] Associates Rafy Encounter for Apr-1 Rk Referring In Womens screening for oth [place]. 700 Provider: Sissy THOMPSON, infec/parastc 6 [facility] Box diseases Center Rk [place], 1522Dr, Geoffrey 700 [place], 120, Medical Rafy [facility] [id number], [place], [facility] 120, [place] [id number] Rafy, tel:+ , [place]. [place], tel: [phone]. [id number] tel:[phone] Associates Rafy Herpesviral Mar-0 Rk Referring In Womens vulvovaginitisAnx [place]. 700 Provider: Sissy THOMPSON, esperanza marin, 6 [facility] Box unspecified Center Rk [place], 1522, , Geoffrey Kay Armijo, 120, Medical Raf[facility] [id number], PA, [facility] 120, [place] [id number] Rafy, tel: , . [place] tel: [phone]. [id number] tel:[phone] Souleymane Hillman Dec-1 Rk Referring In Womens 201 [place]. 700 Provider: Sissy THOMPSON, 4 [facility] Box Center Rk [place], 1522, , [place], 120, Medical Rafy [facility] [id number], [place], Geoffrey 120, [place] [id number] Rafy, tel: , [place]. [place], tel: [phone]. [id number] tel:[phone] Souleymane Hillman Sep-3 Rk Referring In Womens 0-201 [place]. 700 Provider: Health [place], 4 Medical [place] PO Box [place] Rk [place] 1522, , Geoffrey 700 [place], 120, [facility] Rafy [facility] [id number], [place], Geoffrey 120, [place] [id number] Rafy, tel: , [place]. [place], tel: [phone]. [id number] tel:[phone] Souleymane Hillman Philip-0 Macias In Womens 8-201 [place]. Health [place], 0 700 PO Box [facility] 1522, Center Dr Zofia, Geoffrey [place], 120, [id number], Hillman, JOHN, tel: [phone] , [place]. tel: [phone] Family History Family Member Diagnosis Age At [...] Insurance type Covered alliance party ID Authorization(s) [facility] [id number] [place] Medicaid [place] [id number] [facility] [id number] [place] - Medicaid [place] [id number] [facility] [id number] [facility] [id number] [facility] [id number] [place] Medicaid [place] [id number] [facility] [id number] [place] - Medicaid [place] [id number] Social History Type Description Quantity Date Captured Alcohol Use Details No Caffeine Use Details Unknown Tobacco Use Status Smoking Status Former smoker Vital Signs Date / Height Weight BMI Pulse Blood Temperature Respiratory Body Head BMI Time: Rate Pressure Rate Surface Circumference percentile Area 120.70 19.6 109/53 -2017 lbs 0 mm[Hg] 10:31 kg/m AM eter (2) Chief Complaint And Reason For Visit Unknown Chief Complaint And Reason For Visit Reason For Referral Reason For Referral Unknown Plan Of Care Date Type Action Status Appointment Hannah Phillips BOOKED Future Order: Radiology Order Ultrasound < 14 wks ([id number]) Ordered Future Order: Radiology Order Complete OB Ultrasound > 14 Ordered Weeks ([id number]) Future Order: Lab Order Pap Smear With [...]
--- OUTSIDE RECORDS SUMMARY | 2017-10-21 07:59 | External Medical Summary | Continuity of Care Document ---
:1994 Author Organization [facility] Address [address] [place], [place] [address] Phone Support Name Relationship Address Phone Griffin Phillips parent [address] [phone] [place] [address] Allergies, Adverse Reactions, Alerts Substance Reaction Severity [...] second trimester 15 weeks gestation of - Spotting complicating , [...] Anxiety Disorder Active Active Procedures Procedure Date Immuniz admnin, 1 vac, sngl/combo 19 Yrs + Flu Vaccine - Quadrivalent OB Visit No Charge Results Test Name Date and Time Measure Units Reference Range Abnormal Flag Comments Unknown Advance Directives Directive Yes / No Effective Date File Name Unknown Encounters Encounter Practice Location Reason(s) Diagnoses Date Provider Care Team Description For Visit Members Souleymane Hillman Encounter for Rk Referring In Womens suprvsn of normal 2-201 [place]. 700 Provider: Sissy THOMPSON, , second 7 Medical Javed PO Box [id number] weeks Center Rk [place], 1522, gestation of Geoffrey Rome, 120, [facility] [id number], [place] [address], [id number] Rafy, tel:+2 , [place]. JOHN, tel: [phone]. [id number] tel:[phone] Souleymane Hillman Other antepartum Sep-2 Shook Referring In Womens hemorrhage, first 0-201 [place]. Provider: Sisys THOMPSON, [id number] weeks 7 700 Javed PO Box gestation of Medical Rk [place], 1522, Center [address] [id number], [place] [address], Rafy LOPEZ, tel: [phone] [place] [address] , . [id number]. tel: [phone] Souleymane Hillman Threatened Sep-2 Rk Referring In Womens Ultrasound [id number] weeks 0-201 [place]. 700 Provider: Sissy THOMPSON, gestation of 7 Medical Javed PO Box Center Rk R, 1522, , [address], 120, Medical [place], Rafy, [place] [id number], [place], [place] 120, [place] [id number] Rafy, tel: , [place]. [place], tel: [phone]. [id number] tel:[phone] Souleymane Hillman Threatened Sep-1 Sobbing Referring In Womens , 8 [place]. Provider: Health DONNA, AntepartumRoutine 7 700 [facility] Care, Medical Rk R, 1522, [id number] Center 700 [place], weeks gestation Drive, [facility], of Suite Center [id number], 120, Geoffrey 120, [place] Rafy [place], [place]: [place], [address], [id number]. [place]. tel: tel: [phone] Souleymane Hillman Other viral Sep-1 Rk Referring In Womens diseases 4-201 [place]. [facility] Provider: Sissy THOMPSON, complicating 7 Medical [facility] , first Center Rk R, 1522, trimesterEncntr , [place] [address] [place], screen for 120, [facility], infections w sunill Rafy, [place] [id number], mode of [place], [place] , [place] transmissEncounte [id number] Rafy, tel: r for screening , [place]. [place], for oth tel: [phone]. infec/parastc [id number] tel: diseasesEncounter [phone] for suprvsn of normal , first trimesterEncounte r for screening of [id number] weeks gestation of Souleymane Hillman Spotting Sep-1 Shook Referring In Womens complicating 2-201 [place]. Provider: Sissy THOMPSON, , first 7 700 [facility] trimester Medical Rk R, 1522, Center [facility] Dr Zofia, [facility], 120, Center [id number], Hillman, [facility] 120, [place] Rafy LOPEZ, tel: [phone] [place], , [place]. [id number]. tel: tel: [phone] Souleymane Hillman Enc for November- Shook Referring In Womens surveillance of 0- Tanish[place]. Provider: Health DONNA, implantable 7 700 [place] PO Box subdermal Medical Rk R, 1522, contraceptiveEnco Center [address] [place] [address], unter for , [facility] Aniayh LOPEZ, surveillance of 120, Center [id number], other Rafy, [facility] 120, [place] contraceptives Rafy LOPEZ, tel:[phone] [place], , [place]. [id number]. tel: tel:[phone] Souleymane Hillman Mar-3 Rk In Womens 0-201 [place]. 700 Health DONNA, 7 Medical PO Box Center 1522, Geoffrey Rome, 120, Rafy LOPEZ, [id number], [place], [place] tel: , [place]. tel: [phone] Souleymane Hillman Mar-1 Rk In Womens - [place]. 700 Health DONNA, 7 Medical PO Box Center 1522, Geoffrey Rome, 120, Rafy LOPEZ, [id number], [place], [place] tel: , [place]. tel: [phone] Souleymane Hillman Encounter for Aug- Shook Referring In Womens surveillance of Tanisha. Provider: Health DONNA, other 7 700 [place] PO Box contraceptivesEnc Medical Rk R, 1522, ounter for Center [facility] [place], surveillance of , Geoffrey LOPEZ, other 120, Center , contraceptivesEnc Rafy, [facility] 120, [place] ounter for Rafy LOPEZ, tel: test, [place], result negative , [place]. [id number]. tel: tel:[phone] Souleymane Hillman Dec-2 Rk Referring In Womens Follow-Up, [place]. 700 Provider: Health DONNA, Routine 6 Medical [place] PO Box Center Rk R, 1522, Geoffrey [place], 120, Medical Rafy LOPEZ, Center [id number], [place], [facility] 120, [place] [id number] Rafy, tel: , [place]. [place] tel:[phone]. [id number] tel:[phone] Souleymane Hillman Puerperal Dec-1 Rk Referring In Womens psychosis 4-201 [place]. 700 Provider: Sissy THOMPSON, 6 [facility] Moe Ayoub2Dr, Geoffrey [facility] [place], 120, Medical Rafy [facility] [id number], [place], [place] 120, [place] [id number] Rafy, tel: , . [place], tel: [phone]. [id number] tel:[phone] Souleymane Hillman Oct-2 Rk Referring In Womens 7-201 [place]. 700 Provider: Sissy THOMPSON, 6 [facility] [address], [place] [address] [place], 120, Medical Rafy [facility] [id number], [place], [place] 120, [place] [id number] Rafy, tel: , . [place], tel: [phone]. [id number] tel:[phone] Souleymane Hillman Sep-2 Rk Referring In Womens 2-201 [place]. 700 Provider: Sissy THOMPSON, 6 [facility] [address], [place] [address] [place], 120, Medical JOHN [facility] [id number], [place], Geoffrey 120, [place] [id number] Rafy, tel: , . [place], tel: [phone]. [id number] tel:[phone] Souleymane Hillman Vaginal burning Aug-2 Rk Referring In Womens 2-201 [place]. 700 Provider: Sissy THOMPSON, 6 [facility] Cyrus Ayoub, , Geoffrey 700 [place], 120, Medical Rafy [facility] [id number], [place], Geoffrey 120, [place] [id number] Rafy, tel: , . [place], tel: [phone]. [id number] tel:[phone] Souleymane Hillman Encounter for Apr-1 Rk Referring In Womens screening for oth 3-201 [place]. 700 Provider: Sissy THOMPSON, infec/parastc 6 [facility] Center Rk [place] 1522, , Geoffrey 700 [place], 120, Medical Rafy [facility] [id number], [place], [place] [address], [id number] Rafy, tel: , . [place], tel:[phone]. [id number] tel:[phone] Associates Rafy Herpesviral Mar-0 Rk Referring In Womens vulvovaginitisAnx 3-201 [place]. 700 Provider: Sissy THOMPSON, ienicole marin, 6 Medical [place] PO Box unspecified [place] Rk [place] 1522, , [address], 120, Medical Rafy [facility] [id number], [place], [facility] 120, [id number] Rafy, tel: , . [place], tel: [phone]. [id number] tel:[phone] Associates Rafy Dec-1 Rk Referring In Womens 2-201 [place]. 700 Provider: Sissy THOMPSON, 4 [facility] Box [place] Rk [place] 1522Dr, [address], 120, Medical Rafy [facility] [id number], [place], [place] [address], [place] [id number] Rafy, tel: , . [place] tel: [phone]. [id number] tel:[phone] Associates Rafy Sep-3 Rk Referring In Womens 0-201 [place]. 700 Provider: Sissy THOMPSON, 4 [facility] Box [place] Rk [place] 1522Dr, [place] [address] [place], 120, Medical Rafy [facility] [id number], [place], [facility] 120, [place] [id number] Rafy, tel: , . [place], tel: [phone]. [id number] tel:[phone] Associates Rafy Philip-0 Macias In Womens 8-201 [place]. Sissy THOMPSON, [address] [place] [address] 1522, [place] Dr Zofia, [facility], 120, [id number], Hillman, JOHN, tel: [phone] , [place]. tel: [phone] Family History Family Member Diagnosis Age At [...] name Insurance type Covered libertarian ID Authorization(s) [facility] [id number] [employer] [place] - Medicaid [place] [id number] [facility] [id number] [place] [place] [id number] [facility] [id number] [facility] [id number] [facility] [id number] [employer] [place] [employer] [place] Medicaid [place] [id number] [facility] [id number] [place] Medicaid [place] [id number] Social History Type Description Quantity Date Captured Alcohol Use Details No Caffeine Use Details Unknown Tobacco Use Status Smoking Status Former smoker Vital Signs Date / Height Weight BMI Pulse Blood Temperature Respiratory Body Head BMI Time: Rate Pressure Rate Surface Circumference percentile Area 116.00 18.8 118/66 -2017 lbs 4 mm[Hg] 8:51 kg/m AM eter (2) Chief Complaint And Reason For Visit Unknown Chief Complaint And Reason For Visit Reason For Referral Reason For Referral Unknown Plan Of Care Date Type Action Status Appointment Hannah Phillips BOOKED Appointment Hannah Phillips BOOKED Future Order: Radiology Order Ultrasound < 14 wks ([id number]) Ordered Future Order: Lab Order Pap Smear [...]
--- OUTSIDE RECORDS SUMMARY | 2017-10-21 07:59 | External Medical Summary | Continuity of Care Document ---
:1995 Author Organization [email or web address] Address [address] [place], [place] [id number] Phone Support Name Relationship Address Phone Griffin Phillips parent [address] [phone] [place] [address] Allergies, Adverse Reactions, Alerts Substance Reaction Severity [...] stop) Clinical Status Follow-Up, Routine - Other antepartum hemorrhage, second - trimester 19 weeks gestation of - Spotting [...] Anxiety Disorder Active Active Procedures Procedure Date Ultrasound exam of preg uterus, complete Results Test Name Date and Time Measure Units Reference Range Abnormal Flag Comments Unknown Advance Directives Directive Yes / No Effective Date File Name Unknown Encounters Encounter Practice Location Reason(s) Diagnoses Date Provider Care Team Description For Visit Members Souleymane Hillman Encounter for Nov-0 Rk Referring In Womens suprvsn of normal 9-201 [place]. 700 Provider: [facility] [place], , second 7 Medical Javed [address] [id number] weeks [place] Rk R, 1522, gestation of Geoffrey [place], 120, Medical [facility] [id number], [place], Geoffrey 120, [place] [id number] Rafy, tel: , [place]. [place], tel: [phone]. [id number] tel:[phone] Souleymane Hillman Other antepartum Nov-0 Rk Referring In Womens Ultrasound hemorrhage, 9-201 [place]. 700 Provider: [facility], second 7 Medical Javed [address] [id number] weeks [place] Rk R, 1522, gestation of Geoffrey [place], 120, Medical [facility] [id number], [place], [place] 120, [place] [id number] Rafy, tel: , [facility], tel: [phone]. [id number] tel:[phone] Souleymane Hillman Encounter for Oct-1 Rk Referring In Womens suprvsn of normal 2-201 [place]. 700 Provider: Sissy THOMPSON, , second 7 Medical [place] PO Box [id number] weeks Center Rk [place], 1522, gestation of Geoffrey [place], 120, Medical Rafy LOEPZ, [place] [id number], [place], [place] 120, [place] [id number] Rafy, tel:+ , [place]. [place], tel: [phone]. [phone] tel:[phone] Souleymane Hillman Other antepartum Sep-2 Shook Referring In Womens hemorrhage, first 0-201 [place]. Provider: Sissy THOMPSON, [id number] weeks [address] [place] [address] Box gestation of Medical Rk [place], 1522, Center [address], [facility] [place], 120, Center [id number], Hillman, [facility] 120, [place] Rafy LOPEZ, tel:[phone] [place], , [place]. [id number]. tel: tel: [phone] Souleymane Hillman Threatened Sep-2 Rk Referring In Womens Ultrasound [id number] weeks 0-201 [place]. 700 Provider: Sissy THOMPSON, gestation of 7 Medical [facility] Box Center Rk [place], 1522, Geoffrey [place], 120, Medical [facility] [id number], [place], Geoffrey 120, [place] [id number] Rafy, tel: , [place]. [place], tel: [phone]. [id number] tel:[phone] Souleymane Hillman Threatened Sep-1 Sobbing Referring In Womens , 8-201 [place]. Provider: Sissy THOMPSON, AntepartumRoutine [address] [place] [address] Box Care, Medical Rk R, 1522, [id number] Center Kay Armijo, weeks gestation Drive, [facility] JOHN, of Suite Center [id number], 120, Geoffrey 120, [place] Rafy [place], [place]: [place], [address], [id number]. [place]. tel: tel: [phone] Souleymane Hillman Other viral Sep-1 Rk Referring In Womens diseases 4-201 [place]. 700 Provider: Sissy THOMPSON, complicating 7 Medical Javed PO Box , first Center Rk R, 1522, trimesterEncntr , [address], screen for 120, Medical [place], infections w sexl Rafy, [place] [id number], mode of [place], [facility] 120, [place] transmissEncounte [id number] Rafy, tel: r for screening , [place]. [place], for oth tel:[phone]. infec/parastc [id number] tel: diseasesEncounter [phone] for suprvsn of normal , first trimesterEncounte r for screening of [id number] weeks gestation of Associates Rafy Spotting Sep- Shook Referring In Womens complicating 2-201 [place]. Provider: Health [place], , first 7 700 Javed PO Box trimester Medical Rk R, 1522, [place] [address] [place], , [facility], 120, [place] [id number], [place] [address], Rafy LOPEZ, tel:[phone] [place], , [place]. [id number]. tel: tel: [phone] Associates Rafy Enc for November- Shook Referring In Womens surveillance of 0-201 [place]. Provider: Health [place], implantable 7 700 [place] PO Box subdermal Medical Rk R, 1522, contraceptiveEnco Center [facility] oj Armijo for , [facility], surveillance of 120, Center [id number], other [place], [facility] , [place] contraceptives Rafy LOPEZ, tel:[phone] [place], , [place]. [id number]. tel: tel: [phone] Souleymane Hillman Mar-3 Rk In Womens 0-201 [place]. 700 Health [place], 7 Medical PO Box Center 1522, Geoffrey [place], 120, Rafy LOPEZ, [id number], [place], [place] [id number] tel: , [place]. tel: [phone] Souleymane Hillman Mar-1 Rk In Womens 6-201 [place]. 700 Health [place], 7 Medical PO Box Center 1522, Geoffrey [place], 120, Rafy LOPEZ, , [place], [place] [id number] tel: , [place]. tel: [phone] Souleymane Hillman Encounter for Shook Referring In Womens surveillance of [place]. Provider: Sissy THOMPSON, other 7 700 [facility] contraceptivesEnc Medical Rk [place], 1522, ounter for [place] 700 [place], surveillance of , [facility] Medical [place], other 120, [place] [id number], contraceptivesEnc [place], [facility] 120, [place] ounter for Rafy LOPEZ, tel: test, [place], result negative , [place]. [id number]. tel: tel: [phone] Souleymane Hillman Dec-2 Rk Referring In Womens Follow-Up, [place]. 700 Provider: Sissy THOMPSON, Routine 6 [facility] Rk [place], 1522, , [place] [address] [place], 120, Medical Rafy [facility] [id number], [place], [facility] 120, [place] [id number] Rafy, tel: , [place]. [place] tel: [phone]. [id number] tel:[phone] Souleymane Hillman Puerperal Dec-1 Rk Referring In Womens [facility] [place]. 700 Provider: Sissy THOMPSON, 6 [facility] Rk [place], 1522, Dr Geoffrey Kay Armijo, 120, Medical Rafy [facility] [id number], [place], [facility] 120, [place] [id number] Rafy, tel: , [place]. [place] tel: [phone]. [id number] tel:[phone] Souleymane Hillman Oct-2 Rk Referring In Womens [place]. 700 Provider: Sissy THOMPSON, 6 [facility] Rk [place], 1522, Dr [place] [address] [place], 120, Medical Rafy [facility] [id number], [place], [facility] 120, [place] [id number] Rafy, tel: , . [place] tel: [phone]. [phone] tel:[phone] Souleymane Hillman Sep-2 Rk Referring In Womens 201 [place]. 700 Provider: Sissy THOMPSON, 6 [facility] PO Box Center Rk [place], 1522, , Geoffrey 700 [place], 120, Medical Rafy [facility] [id number], [place], [facility] 120, [place] [id number] Rafy, tel:+ , [place]. [place], tel: [phone]. [id number] tel:[phone] Souleymane Hillman Vaginal burning Aug-2 Rk Referring In Womens 201 [place]. 700 Provider: Sissy THOMPSON, 6 [facility] Box [place] Rk [place], 1522, , Geoffrey 700 [place], 120, Medical Rafy [facility] [id number], [place], [facility] 120, [place] [id number] Rafy, tel:+ , [place]. [place], tel: [phone]. [id number] tel:[phone] Souleymane Hillman Encounter for Apr-1 Rk Referring In Womens screening for oth [place]. 700 Provider: Sissy THOMPSON, infec/parastc 6 [facility] Box diseases Center [address], Geoffrey 700 [place], 120, Medical Rafy [facility] [id number], [place], [facility] 120, [place] [id number] Rafy, tel: , [place]. [place], tel: [phone]. [id number] tel:[phone] Souleymane Hillman Herpesviral Mar-0 Rk Referring In Womens vulvovaginitisAnx [place]. 700 Provider: Sissy THOMPSON, esperanza marin, 6 [facility] Box unspecified Center Rk [place], 1522, , Geoffrey 700 [place], 120, Medical Rafy [facility] [id number], [place], [facility] 120, [place] [id number] Rafy, tel: , [place]. [place] tel: [phone]. [id number] tel:[phone] Souleymane Hillman Dec-1 Rk Referring In Womens 201 [place]. 700 Provider: Sissy THOMPSON, 4 [facility] Box Center Rk [place], Cyrus, , [place], 120, Medical Rafy LOPEZ Center [id number], [place], Geoffrey 120, [place] [id number] Rafy, tel: , [place]. [place], tel: [phone]. [id number] tel:[phone] Souleymane Hillman Sep-3 Rk Referring In Womens 0-201 [place]. 700 Provider: Health [place], 4 [facility] PO Box [place] R[place] 1522, , Geoffrey 700 [place], 120, [facility] Rafy [facility] [id number], [place], Geoffrey 120, [place] [id number] Rafy, tel: , [place]. [place], tel: [phone]. [id number] tel:[phone] Souleymane Hillman Philip-0 Macias In Womens 8-201 [place]. [facility] [place], 0 700 PO Box [facility] 1522, [place] Dr Zofia, [facility] [place], 120, [id number], Hillman, JOHN, tel: [phone] , . tel: [phone] Family History Family Member Diagnosis Age At [...] name Insurance type Covered democrat ID Authorization(s) [facility] [id number] [place] [id number] [facility] [id number] [place] [id number] [facility] [id number] [facility] [id number] [facility] [id number] [place] Medicaid [place] [id number] [facility] [id number] [place] - Medicaid [place] [id number] Social History Type Description Quantity Date Captured [...] Hannah Phillips BOOKED Future Order: Radiology Order Complete OB Ultrasound > 14 Ordered Weeks ([id number]) Future Order: Radiology Order Ultrasound < 14 wks ([id number]) Ordered Future Order: Lab Order Pap Smear [...]
--- OUTSIDE RECORDS SUMMARY | 2017-10-21 07:59 | External Medical Summary | Continuity of Care Document ---
:1994 Author Organization [facility] Address [address] [place], [place] [id number] Phone Support Name Relationship Address Phone Griffin Phillips parent [address] [phone] [place] [address] Allergies, Adverse Reactions, Alerts Substance Reaction Severity [...] Status Follow-Up, Routine - Other antepartum hemorrhage, first - trimester 12 weeks gestation of - Spotting complicating , first trimester Threatened , Antepartum - Routine Care, Multigravida 12 weeks gestation of - Herpesviral vulvovaginitis Anxiety disorder, unspecified Puerperal psychosis Vaginal burning Threatened - 12 weeks gestation of - Other viral [...] Shook Referring In Womens hemorrhage, first 0-201 [place]. Provider: Sissy THOMPSON, [email or web address] weeks 7 700 [facility] gestation of Medical Rk [place], 1522, Center [facility] Dr Zofia, [facility], 120, [place] [id number], [facility] 120, Rafy LOPEZ, tel:+ [phone] [place], , . [id number]. tel: tel:[phone] Souleymane Hillman Threatened Sep-2 Rk Referring In Womens Ultrasound [id number] weeks 0-201 [place]. 700 Provider: Sissy THOMPSON, gestation of 7 Medical [facility] Box Center Rk [place], 1522, Dr [address], 120, Medical Rafy LOPEZ, [place] [id number], [facility] 120, [place] [id number] Rafy, tel: , . [place], tel: [phone]. [id number] tel:[phone] Souleymane Hillman Threatened Sep-1 Sobbing Referring In Womens , 8-201 [place]. Provider: Sissy THOMPSON, AntepartumRoutine 7 700 [facility] Box Care, Medical Rk R, 1522, [id number] Center [facility] [place], weeks [facility], of Suite Center [id number], 120, Geoffrey 120, [place] Rafy Hillman, tel:+ [place], [address], [id number]. [place]. tel: tel: [phone] Souleymane Hillman Other viral Sep-1 Rk Referring In Womens diseases 4-201 [place]. [facility] Provider: Sissy THOMPSON, complicating 7 Medical Javed PO Box , first Center Rk R, 1522, trimesterEncntr , [address], screen for 120, [facility], infections w sexl Rafy, [place] [id number], mode of [place], [facility] 120, [place] transmissEncounte [id number] Rafy, tel: r for screening , [place]. [place], for oth tel: [phone]. infec/parastc [id number] tel: diseasesEncounter [phone] for suprvsn of normal , first [id number] weeks gestation of pregnancyEncounte r for screening of mother Souleymane Hillman Spotting Sep-1 Shook Referring In Womens complicating 2-201 [place]. Provider: Sissy THOMPSON, , first 7 700 Javed PO Box trimester Medical Rk R, 1522, Center [facility] Dr Zofia, [facility], 120, Center [id number], [facility] 120, [place] Rafy LOPEZ, tel:[phone] [place], , [place]. [id number]. tel: tel: [phone] Souleymane Phipps for May-3 Shook Referring In Womens surveillance of 0-201 [place]. Provider: Health DONNA, implantable 7 700 Javed PO Box subdermal Medical Rk R, 1522, contraceptiveEnco Center [facility] jasmyne Armjioer for , [facility], surveillance of 120, Center [id number], other Rafy, [facility] 120, [place] contraceptives Rafy LOPEZ, tel:[phone] [place], , [place]. [id number]. tel: tel: [phone] Souleymane Hillman Mar-3 Rk In Womens 0-201 [place]. 700 Health DONNA, 7 Medical PO Box Center 1522, Geoffrey [place], 120, Rafy LOPEZ, [id number], [place], [place] [id number] tel: , [place]. tel: [phone] Souleymane Hillman Mar-1 Rk In Womens 6-201 [place]. 700 Sissy THOMPSON, 7 [facility] PO Box Center 1522, Geoffrey [place], 120, Rafy LOPEZ, [id number], [place], [place] [id number] tel: , [place]. tel: [phone] Souleymane Hillman Encounter for Aug- Shook Referring In Womens surveillance of - [place]. Provider: Sissy THOMPSON, other [address] [place] [address] contraceptivesEnc Medical Rk [place], 1522, ounter for Center [facility] [place], surveillance of , [facility] JOHN, [facility] 120, [place] , contraceptivesEnc [place], [facility] 120, ounter for Rafy LOPEZ, tel: test, [place], result negative , [place]. [id number]. tel: tel: [phone] Souleymane Hillman Dec-2 Rk Referring In Womens Follow-Up, [place]. 700 Provider: Sissy THOMPSON, Routine 6 [facility] Rk [place], 1522, Geoffrey [place], 120, Medical Rafy LOPEZ, [place] [id number], [place], [facility] 120, [place] [id number] Rafy, tel: , [place]. [place], tel:[phone]. [id number] tel:[phone] Souleymane Hillman Puerperal Dec-1 Rk Referring In Womens psychosis 4-201 [place]. 700 Provider: Sissy THOMPSON, 6 [facility] Rk [place], 1522, Geoffrey [place], 120, Medical [facility] [id number], [place], [facility] 120, [place] [id number] Rafy, tel: , . [place] tel: [phone]. [id number] tel:[phone] Souleymane Hillman Oct-2 Rk Referring In Womens 7-201 [place]. 700 Provider: Sissy THOMPSON, 6 [facility] Box Center [address], Geoffrey 700 [place], 120, Medical [facility] [id number], [place], Geoffrey 120, [place] [id number] Rafy, tel:+ , [place]. [place], tel: [phone]. [id number] tel:[phone] Associates Rafy Sep-2 Rk Referring In Womens 2-201 [place]. 700 Provider: Sissy THOMPSON, 6 [facility] Box [place] [address], Geoffrey 700 [place], 120, Medical [facility] [id number], [place], Geoffrey 120, [place] [id number] Rafy, tel:+ , [place]. [place], tel: [phone]. [id number] tel:[phone] Associates Rafy Vaginal burning Aug-2 Rk Referring In Womens [place]. 700 Provider: Sissy THOMPSON, 6 [facility] [address], Geoffrey Kay Armijo, 120, Medical [facility] [id number], [place], [facility] 120, [place] [id number] Rafy, tel:+ , [place]. [place], tel: [phone]. [id number] tel:[phone] Associates Rafy Encounter for Apr-1 Rk Referring In Womens screening for oth [place]. 700 Provider: Sissy THOMPSON, infec/parastc 6 [facility] Box diseases Center [address], Geoffrey 700 [place], 120, Medical [facility] [id number], [place], Geoffrey 120, [place] [id number] Rafy, tel: , [place]. [place], tel: [phone]. [id number] tel:[phone] Associates Rafy Herpesviral Mar-0 Rk Referring In Womens vulvovaginitisAnx [place]. 700 Provider: Sissy THOMPSON, iety disorder, 6 [facility] Box unspecified Center [address], Geoffrey 700 [place], 120, Medical [facility] [id number], [place], Geoffrey 120, [place] [id number] Rafy, tel:+ , [place]. [place], tel: [phone]. [id number] tel:[phone] Souleymane Hillman Dec-1 Rk Referring In Womens 2-201 [place]. 700 Provider: Health DONNA, 4 [facility] Cyrus Ayoub, , [address], 120, Medical [facility] [id number], [place], Geoffrey 120, [place] [id number] Rafy, tel:+ , [place]. [place], tel: [phone]. [id number] tel:[phone] Souleymane Hillman Sep-3 Rk Referring In Womens 0-201 [place]. 700 Provider: Health [place], 4 [facility] Cyrus Ayoub, , [facility] 700 [place], 120, Medical Raf[facility] [id number], [place], Geoffrey 120, [place] [id number] Rafy, tel:+ , [place]. [place], tel: [phone]. [id number] tel:[phone] Souleymane Hillman Philip-0 Macias In Womens 8-201 [place]. Health [place], [address] [place] [address] 1522, [place] Dr Zofia, [facility], 120, [id number], Hillman, JOHN, tel:+ [phone] , . tel: [phone] Family History Family Member Diagnosis Age At [...] Insurance type Covered alliance party ID Authorization(s) [facility] [place] [id number] [facility] [id number] [facility] [id number] [facility] [id number] [place] Medicaid [place] [id number] [place] [id number] [place] Medicaid [place] [id number] Social History Type Description Quantity Date Captured Alcohol Use Details No Caffeine Use Details Unknown Tobacco Use Status Smoking Status Former smoker Vital Signs Date / Height Weight BMI Pulse Blood Temperature Respiratory Body Head BMI Time: Rate Pressure Rate Surface Circumference percentile Area 115.20 18.7 118/67 2017 lbs 0 mm[Hg] 10:59 kg/m AM eter (2) Chief Complaint And Reason For Visit Unknown Chief Complaint And Reason For Visit Reason For Referral Reason For Referral Unknown Plan Of Care Date Type Action Status Appointment Hannah Phillips BOOKED Future Order: Radiology Order Ultrasound < 14 wks ([id number]) Ordered Future Order: Lab Order Pap Smear [...]
[2017-10-21 08:47] VITALS: O2SAT 98
[2017-10-21 08:48] VITALS: BMI 24.8
--- NOTE | 2017-10-21 09:18 | Anesthesia Preoperative Report ---
Anesthesia Epidural/Spinal Rec - Date and Time Date: 10/21/17 Preoperative Diagnosis: Procedure: Labor Epidural Plan: Epidural - Vital Signs Vital Signs: Temperature 98.3 F 10/21/17 07:20 Pulse Rate 73 10/21/17 07:20 Respiratory Rate 20 10/21/17 07:20 Blood Pressure 118/73 10/21/17 07:20 Pulse Oximetry 98 10/21/17 07:20 /Para: P:1 - Medictaions & Allergies Inpatient Medications: Current Medications Acetaminophen (Tylenol) 500 - 1,000 mg PO Q4H PRN PRN Reason: Pain Al Hydroxide/Mg Hydroxide (Maalox Plus) 30 ml PO Q3H PRN PRN Reason: Indigestion Calcium Carbonate (Tums) 500 - 1,000 mg PO Q2H PRN PRN Reason: Indigestion Carboprost Tromethamine (Hemabate) 250 mcg IM O PRN PRN Reason: .Downtime Lactated Ringer's (Lactated Ringers) 1,000 mls @ 999 mls/hr IV .Q1H1M PRN Lidocaine HCl (Xylocaine-Mpf 1% Vial) 0.2 mg ID O PRN PRN Reason: IV Start Methylergonovine Maleate (Methergine) 0.2 mg IM O PRN Misoprostol (Cytotec) 800 mcg RI ONCE PRN Allergies/Adverse Reactions: Allergies Allergy/AdvReac Type Severity Reaction Status Date / Time Sulfa (Sulfonamide Allergy Unknown Verified 10/21/17 08:49 Antibiotics) - Home Medications Home Medications: Home Medications Medication Instructions Recorded Confirmed Type Vit/Iron Fumarate/FA 1 tab PO DAILY #0 tab 04/09/16 10/21/17 History [ Vitamin Tablet] Acyclovir 500 mg PO DAILY 09/28/17 10/21/17 History - Medical History Neuro/Musculoskeletal: Reports: Depression (hx of PP depression) Other History: Reports: Now - Surgical History Reproductive Surgery/Treatment: DENIES: Section Anesthesia Reactions: None Hx Family Anesthesia Reaction: No History of Motion Sickness: No - Social History Smoking Status: Former smoker Second Hand Exposure: No Substance Use Type: does not use Alcohol Intake Frequency: does not drink Hx Chewing Tobacco Use: No - Pertinent Findings Lab Data: CBC and BMP 10/21/17 08:01 EKG Rhythm: Normal Sinus Rhythm - Physical Exam Respiratory Exam: lungs clear Cardiovascular Exam: regular rate and rhythm - Airway Assessment Mallampati Score: I TMD: 3 Fingerbreadths Neck Extension: good Overall Assessment: no airway concerns - Discussion Discussion: Discussed risks/options/alternatives of anesthesia and questions answered. Patient consents. Nursing pain assessment noted. Anesthesia Discussion: family member Attestation Statement: Prior to the delivery of any anesthetic medication, I examined the patient, developed the plan, obtained the patient's consent and discussed the risk and benefits of the procedure with the patient/guardian.
[2017-10-21] MEDS ORDERED: OXYTOCIN DRIP 30 UNIT/500 ML ML IV SCH (09:30)
[2017-10-21] MEDS ORDERED: HYDROCORTISONE 2.5% CREAM 30gm RECTALLY PRN (09:30)
[2017-10-21] MEDS ORDERED: DOCUSATE CALCIUM 240 MG CAPSULE PO SCH (09:30)
[2017-10-21] MEDS ORDERED: DiphenhydrAMINE 50 MG/ML INJECTION IVP PRN (09:30)
[2017-10-21] MEDS ORDERED: ONDANSETRON 4 MG/2 ML INJECTION IVP PRN (09:30)
[2017-10-21] MEDS ORDERED: ROPIVACAINE 1% 10MG/ML INJ 200 MG, SUFentanil 50 MCG in NS 100 ML EPI PRN (09:30)
[2017-10-21] MEDS ORDERED: DiphenhydrAMINE 25 MG CAPSULE PO PRN (09:30)
[2017-10-21] MEDS ORDERED: NALOXONE 0.4 MG/ML INJECTION IVP PRN (09:30)
[2017-10-21] MEDS ORDERED: IBUPROFEN 800 MG TABLET PO PRN (09:30)
--- NOTE | 2017-10-21 11:57 | Labor and Delivery Note ---
DATE OF DELIVERY: 10/21/2017 DIAGNOSES 1. 22-year-old G2, P1 at 38.5 weeks gestational age. 2. Spontaneous labor. 3. 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 4. Epidural anesthesia. 5. Artificial rupture of membranes. 6. Spontaneous vaginal delivery. 7. Male , 9/10 Apgars, 3112 g (Robb Ravi). BRIEF HISTORY This is a patient of mine that was scheduled for induction next Tuesday for being at the 18th percentile. She presented this morning in spontaneous labor, completely dilated with a bulging bag. She wanted an epidural, so she was admitted and an epidural was placed. heart tones were reactive. When she was comfortable we broke her bag and began pushing. AROM occurred at 8:03 a.m. Spontaneous vaginal delivery occurred at 8:11 a.m. and placenta at 8:18 a.m. was delivered from the OA position without difficulty. He was bulb suctioned after delivery of the head and then again after delivery of the body. Cord was allowed to drain for 2 minutes and it was doubly clamped and the infant's father cut the cord. The placenta delivered spontaneously and was intact. Perineum was intact. Dr. Thomas had done a speculum exam and proved that there were no herpes simplex lesions present today and the patient had been on suppression. At the time of dictation mother and are doing well. ADELE
[2017-10-21] MEDS: HYDROCODONE/APAP 5mg/325mg TABLET PO PRN ×2 (16:05→20:16)
--- NOTE | 2017-10-21 16:26 | Anesthesia Postoperative Note ---
- Date and Time Date: 10/21/17 Time: 16:26 - Status Patient Participated in Evaluation: Patient Participated in Person Vital Signs: Temperature 98.4 F 10/21/17 12:20 Pulse Rate 81 10/21/17 12:20 Respiratory Rate 18 10/21/17 12:20 Blood Pressure 105/51 10/21/17 12:20 Pulse Oximetry 98 10/21/17 12:20 Respiratory Function: Airway Patent Cardiovascular Function: Regular Pulse Mental Status: Alert and Oriented Pain Intensity: 0 Hydration: Taking PO Fluids Complications During Recover: None Apparent - Follow-Up Instructions Instructions: Per Surgeon
[2017-10-22] MEDS: HYDROCODONE/APAP 5mg/325mg TABLET PO PRN (05:30)
[2017-10-22 05:34] VITALS: BP 115/69; PULSE 54; RESP 16; TEMP 98.1
== END 2017-10-22 12:07 | disposition home or self-care (01) | DRG 774 ==
LOC: MC 07:20
PROVIDERS: ADMIT Obstetrics & Gynecology; ATTEND Obstetrics & Gynecology